=== PATIENT | female | born 1985 | race African-American/Black ===

== ENCOUNTER 2016-08-30 12:37 | Emergency (ER) | payer MEDICAID ==
--- NOTE | 2016-08-30 13:01 | ER Document Report ---
ED Medical Screen (RME) - General Stated Complaint: VAGINAL BLEEDING Notes: 30 yo female c/o heavy vaginal bleeding since Wednesday. + lower abdominal pain, stabbing. pt previous similar bleeding. + clots. TRAVEL OUTSIDE OF THE [place] IN LAST 30 DAYS: No - Related Data Allergies/Adverse Reactions: No Known Allergies Allergy (Verified 04/24/15 20:46) Past Medical History - Past Medical History Cardiac Medical History: Denies: Hx Coronary Artery Disease, Hx Heart Attack, Hx Hypertension Pulmonary Medical History: Denies: Hx Asthma, Hx Bronchitis, Hx COPD, Hx Pneumonia Neurological Medical History: Denies: Hx Cerebrovascular Accident, Hx Seizures Musculoskeltal Medical History: Denies Hx Arthritis Psychiatric Medical History: Reports: Hx Bipolar Disorder - Immunizations Immunizations up to date: Yes Hx Diphtheria, Pertussis, Tetanus Vaccination: Yes
[2016-08-30 14:02] LABS: ABSOLUTE EOSINOPHILS # (AUTO) 0.1 10^3/uL (0.0-0.6); ABSOLUTE LYMPHOCYTES (AUTO) 2.1 10^3/uL (0.5-4.7); ABSOLUTE MONOCYTES (AUTO) 0.3 10^3/uL (0.1-1.4); ABSOLUTE NEUT (AUTO) 1.3 10^3/uL (1.7-8.2); BASOPHILS % (AUTO) 1.1 % (0-2); EOSINOPHILS % (AUTO) 1.5 % (0-6); HEMOGLOBIN 11.4 g/dL (12.0-15.5); HGB HCT DIFFERENCE -0.8; LYMPHOCYTES % (AUTO) 54.6 % (13-45); MEAN CORPUSCULAR HEMOGLOBIN 25.1 pg (27.0-33.4); MEAN CORPUSCULAR HGB CONC 32.6 g/dL (32.0-36.0); MEAN CORPUSCULAR VOLUME 77 fl (80-97); MONOCYTES % (AUTO) 8.5 % (3-13); RED BLOOD COUNT 4.54 10^6/uL (3.72-5.28); RED CELL DISTRIBUTION WIDTH 16.7 % (11.5-14.0); SEGMENTED NEUTROPHILS % (AUTO) 34.3 % (42-78); WHITE BLOOD COUNT 3.9 10^3/uL (4.0-10.5)
--- NOTE | 2016-08-30 14:10 | ER Document Report ---
ED GI/ - General Chief Complaint: Vaginal Bleeding Stated Complaint: VAGINAL BLEEDING Time seen by provider: 14:06 Mode of Arrival: Ambulatory Information source: Patient Notes: 40-year-old female presents to ED for pelvic pain with heavy vaginal bleeding since Wednesday patient states last menstrual period was August 02. She states she has had 8 pregnancies and 6 live births 2 miscarriages. TRAVEL OUTSIDE OF THE [place] IN LAST 30 DAYS: No - HPI Patient complains to provider of: Abdominal pain, Pelvic pain, Vaginal bleeding - With clots Onset: Other Timing/Duration: Gradual - Wednesday, Better Quality of pain: Cramping, Sharp Pain Level: 5 Location: RLQ, Pelvis Vaginal bleeding (Compared to normal period): Heavier, Passing clots LMP: 08/02/16 Associated symptoms: Other - Vaginal bleeding right pelvic and lower quadrant pain Exacerbated by: Denies Relieved by: Denies Similar symptoms previously: Yes Recently seen / treated by doctor: No - Related Data Allergies/Adverse Reactions: No Known Allergies Allergy (Verified 08/30/16 13:01) Past Medical History - General Information source: Patient - Social History Smoking Status: Current Every Day Smoker Cigarette use (# per day): Yes - 1-2 cigarettes a day Chew tobacco use (# tins/day): No Smoking Education Provided: Yes - less than 1 minute Frequency of alcohol use: None Drug Abuse: None Occupation: patient states she is disabled Lives with: Alone - Along with children Family History: Arthritis, CAD, CVA, DM, Hyperlipidemia, Hypertension, Malignancy Patient has suicidal ideation: No Patient has homicidal ideation: No - Past Medical History Cardiac Medical History: Reports: None Pulmonary Medical History: Reports: None EENT Medical History: Reports: None Neurological Medical History: Reports: None Endocrine Medical History: Reports: None Renal/ Medical History: Reports: None Malignancy Medical History: Reports: None GI Medical History: Reports: None Musculoskeltal Medical History: Reports None Skin Medical History: Reports None Psychiatric Medical History: Reports: Hx Bipolar Disorder Traumatic Medical History: Reports: None Infectious Medical History: Reports: None Surgical Hx: Negative - Immunizations Immunizations up to date: Yes Hx Diphtheria, Pertussis, Tetanus Vaccination: Yes Hx Pneumococcal Vaccination: 08/23/00 Review of Systems - Review of Systems Constitutional: No symptoms reported EENT: No symptoms reported Cardiovascular: No symptoms reported Respiratory: No symptoms reported Gastrointestinal: Abdominal pain - Right lower quadrant just above the pelvic Genitourinary: No symptoms reported Female Genitourinary: Vaginal bleeding, Other Musculoskeletal: No symptoms reported Skin: No symptoms reported Hematologic/Lymphatic: No symptoms reported Neurological/Psychological: No symptoms reported Physical Exam - Vital signs Vitals: Temp Pulse Resp BP Pulse Ox 98.4 F 70 14 90/61 L 100 08/30/16 12:56 08/30/16 12:56 08/30/16 12:56 08/30/16 12:56 08/30/16 12:56 Interpretation: Normal - General General appearance: Appears well, Alert - HEENT Head: Normocephalic, Atraumatic Eyes: Normal Pupils: PERRL - Respiratory Respiratory status: No respiratory distress Chest status: Nontender Breath sounds: Normal Chest palpation: Normal - Cardiovascular Rhythm: Regular Heart sounds: Normal auscultation Murmur: No - Abdominal Inspection: Normal Distension: No distension Bowel sounds: Normal Tenderness: Tender - Right pelvic and just above the pelvic area Organomegaly: No organomegaly - Back Back: Normal, Nontender - Extremities General upper extremity: Normal inspection, Nontender, Normal color, Normal ROM , Normal temperature General lower extremity: Normal inspection, Nontender, Normal color, Normal ROM , Normal temperature, Normal weight bearing. No: Kelli's sign - Neurological Neuro grossly intact: Yes Cognition: Normal Orientation: AAOx4 [place] Coma Scale Eye Opening: Spontaneous [place] Coma Scale Verbal: Oriented [place] Coma Scale Motor: Obeys Commands Yvette Coma Scale Total: 15 Speech: Normal Motor strength normal: LUE, RUE, LLE, RLE Sensory: Normal - Psychological Associated symptoms: Normal affect, Normal mood - Skin Skin Temperature: Warm Skin Moisture: Dry Skin Color: Normal Course - Re-evaluation Re-evalutation: 08/30/16 17:12 Discussed labs and ultrasound with patient and written reports given to patient for follow-up with her primary doctor. Her ultrasound was negative and her labs were negative. - Vital Signs Vital signs: Temp Pulse Resp BP Pulse Ox 98.4 F 70 14 90/61 L 100 08/30/16 12:56 08/30/16 12:56 08/30/16 12:56 08/30/16 12:56 08/30/16 12:56 - Laboratory Result Diagrams: 08/30/16 13:24 01/08/17 13:24 Laboratory results interpreted by me: 08/30/16 08/30/16 13:24 13:24 WBC 3.9 L Hgb 11.4 L Hct 35.0 L MCV 77 L MCH 25.1 L RDW 16.7 H Plt Count 147 L Seg Neutrophils % 34.3 L Lymphocytes % 54.6 H Absolute Neutrophils 1.3 L Urine Protein 30 H Urine Blood LARGE H Urine Urobilinogen 4.0 H Ur Leukocyte Esterase TRACE H - Diagnostic Test Radiology reviewed: Image reviewed, Reports reviewed Discharge - Discharge Clinical Impression: Pelvic pain, Vaginal bleeding Condition: Stable Disposition: HOME, SELF-CARE Instructions: Family Physicians / Practices Additional Instructions: PELVIC PAIN: There are many causes of pain in the pelvic area. The cause could be the tubes, ovaries, uterus, intestines, appendix, pelvic muscles and connective tissue, or the urinary tract. The cause of your pelvic pain is not clear. However, it seems safe to treat you outside the hospital. If the pain sounds like a temporary problem, we sometimes wait to see if it goes away. Other patients may need additional tests, such as pelvic ultrasound or cultures. Conditions may change. Call us or come back for reexamination if any problems occur, such as: (1) Pain that becomes more severe, steady, or becomes concentrated in one specific area. Also, pain that is more severe with movement or coughing. (2) Vomiting that persists or becomes more frequent. (3) Blood in the vomitus, urine, or bowel movements. Blood in the stool may have a tarry or black appearance. (4) Shaking chills or fever greater than 100 degrees. (5) The abdomen becomes more distended or swollen. (6) Bowel movements cease. (7) Heavy vaginal bleeding. VAGINAL BLEEDING: You are having an episode of abnormal bleeding. Causes of abnormal vaginal bleeding can include miscarriage or tubal , tumors such as cancer or benign fibroids, medication effects, or hormone imbalance. Testing can eliminate unsuspected , tumors, or infection as a cause. "Dysfunctional uterine bleeding" is due to hormone imbalance, and is especially common at times when the normal cycle is disturbed -- whether by recent , use of control pills or hormones, or impending menopause. If the bleeding is innocent, most commonly a short course of hormones is given to restore the uterus to normal. Sometimes, the normal menstrual cycle corrects itself naturally. Sometimes , brief hormone therapy, or even a D&C is required. Your physician will advise you. Treatment for anemia may be required if bleeding is severe. You should rest and avoid intercourse until the bleeding is controlled. Call the doctor or return for re-examination if you feel faint, have increasing pain, or have a major increase in the amount of bleeding. FIBROIDS: Fibroids are benign growths or tumors in the uterus. They can cause enlargement of the uterus, irregular bleeding, severe bleeding with periods, and abdominal pain. Anemia may result if periods are heavy. Fibroids tend to grow until menopause, then slowly shrink. If fibroids cause severe symptoms, they can be treated surgically. Call or return if vaginal bleeding or pain becomes severe. NORMAL EXAM AND WORKUP: At this time, except for vaginal bleeding, your examination and workup show no significant abnormality. No significant abnormal physical findings were noted. All laboratory, EKG, and imaging (x-ray, CT scans, ultrasound) studies that were ordered show no significant abnormality. Although your examination and all studies that were ordered showed no significant abnormal finding, there are no examinations and no studies that are 100% accurate. There is always the possibility that some abnormality could exist and not be detected with physical examination or within the limits and capabilities of laboratory and other studies. You should return or follow up as you were instructed on your visit today for further evaluation if your symptoms do not resolve. FOLLOW-UP CARE: If you have been referred to a physician for follow-up care, call the physician s office for an appointment as you were instructed or within the next two days. If you experience worsening or a significant change in your symptoms (very heavy bleeding with large clots of blood, passage of tissue, more severe abdominal / pelvic pain or cramping, feeling faint or severe weakness, fever, etc.), notify the physician immediately or return to the Emergency Department at any time for re-evaluation. [facility] ([facility] [place]: [facility] [address] [place] [address] [phone] Forms: Smoking Cessation Education
[2016-08-30 14:13] LABS: APPEARANCE,URINE SLIGHTLY-CLOUDY; BILIRUBIN,URINE NEGATIVE (NEGATIVE); GLUCOSE, URINE NEGATIVE (NEGATIVE); KETONES,URINE NEGATIVE (NEGATIVE); LEUKOCYTE ESTERASE,URINE TRACE (NEGATIVE); NITRITE,URINE NEGATIVE (NEGATIVE); PROTEIN,URINE 30 mg/dL (NEGATIVE); URINE SPECIFIC GRAVITY 1.029
[2016-08-30 14:20] LABS: ALANINE AMINOTRANSFERASE 44 U/L (9-52); ALBUMIN 4.3 g/dL (3.5-5.0); ALKALINE PHOSPHATASE 61 U/L (38-126); ANION GAP 10 (5-19); ASPARTATE AMINO TRANSFERASE 26 U/L (14-36); BILIRUBIN,TOTAL 0.6 mg/dL (0.2-1.3); BLOOD UREA NITROGEN 11 mg/dL (7-20); CALCIUM 10.1 mg/dL (8.4-10.2); CARBON DIOXIDE 30 mmol/L (22-30); CHLORIDE 105 mmol/L (98-107); CREATININE RESULT 1.03 mg/dL (0.52-1.25); GLUCOSE 85 mg/dL (75-110); POTASSIUM 4.1 mmol/L (3.6-5.0); SODIUM 144.6 mmol/L (137-145); TOTAL PROTEIN 7.4 g/dL (6.3-8.2)
[2016-08-30 17:16] VITALS: BP 118/82
== END 2016-08-30 17:26 | disposition home or self-care (01) ==
LOC: ER 12:37
DX: N93.9 Abnormal uterine and vaginal bleeding, unspecified (principal); R10.2 Pelvic and perineal pain; R10.31 Right lower quadrant pain; Z87.59 Personal history of other complications of pregnancy, childbirth and the puerperium; F17.210 Nicotine dependence, cigarettes, uncomplicated; Z71.6 Tobacco abuse counseling
CPT/HCPCS: 36415; 76830; 80053; 81001; 84702; 84703; 85025; 99284

== ENCOUNTER 2016-11-20 22:17 | Emergency (ER) | payer MEDICAID ==
[2016-11-20 22:25] VITALS: BP 105/66
[2016-11-21 00:14] LABS: APPEARANCE,URINE SLIGHTLY-CLOUDY; BILIRUBIN,URINE NEGATIVE (NEGATIVE); GLUCOSE, URINE NEGATIVE (NEGATIVE); KETONES,URINE NEGATIVE (NEGATIVE); LEUKOCYTE ESTERASE,URINE TRACE (NEGATIVE); NITRITE,URINE NEGATIVE (NEGATIVE); PROTEIN,URINE NEGATIVE (NEGATIVE)
--- NOTE | 2016-11-21 02:53 | ER Document Report ---
ED GI/ - General Chief Complaint: Vaginal Bleeding Stated Complaint: VAGINAL BLEEDING,SHARP PAIN,HARD TO WALK Mode of Arrival: Ambulatory Information source: Patient Notes: 30-year-old female presents to the emergency department complaining of vaginal bleeding and pelvic pain. Pt reports began having vaginal bleeding this afternoon similar to light menstrual period and has noted associated cramping type pain to mid and right lower pelvis. Reports LMP was 10/24/16. Reports urinary urgency but denies dysuria. Denies fever or vaginal discharge. TRAVEL OUTSIDE OF THE [place] IN LAST 30 DAYS: No - HPI Patient complains to provider of: Pelvic pain, Vaginal bleeding Onset: This afternoon Timing/Duration: Gradual Quality of pain: Achy, Cramping Severity at maximum: Moderate Severity in ED: Mild Pain Level: 2 Vaginal bleeding (Compared to normal period): Similar Similar symptoms previously: No Recently seen / treated by doctor: No - Related Data Allergies/Adverse Reactions: No Known Allergies Allergy (Verified 11/20/16 22:59) Past Medical History - General Information source: Patient - Social History Smoking Status: Current Every Day Smoker Chew tobacco use (# tins/day): No Frequency of alcohol use: None Drug Abuse: None Family History: Arthritis, CAD, CVA, DM, Hyperlipidemia, Hypertension, Malignancy - Past Medical History Cardiac Medical History: Denies: Hx Coronary Artery Disease, Hx Heart Attack, Hx Hypertension Pulmonary Medical History: Denies: Hx Asthma, Hx Bronchitis, Hx COPD, Hx Pneumonia Neurological Medical History: Denies: Hx Cerebrovascular Accident, Hx Seizures Renal/ Medical History: Denies: Hx Peritoneal Dialysis Musculoskeltal Medical History: Denies Hx Arthritis Psychiatric Medical History: Reports: Hx Bipolar Disorder Surgical Hx: Negative - Immunizations Immunizations up to date: Yes Hx Diphtheria, Pertussis, Tetanus Vaccination: Yes Hx Pneumococcal Vaccination: 08/23/00 Review of Systems - Review of Systems Constitutional: No symptoms reported EENT: No symptoms reported Cardiovascular: No symptoms reported Respiratory: No symptoms reported Gastrointestinal: No symptoms reported Genitourinary: No symptoms reported Female Genitourinary: See HPI Musculoskeletal: No symptoms reported Skin: No symptoms reported Hematologic/Lymphatic: No symptoms reported Neurological/Psychological: No symptoms reported -: Yes All other systems reviewed and negative Physical Exam - Vital signs Vitals: Temp Pulse Resp BP Pulse Ox 98.6 F 59 L 16 105/66 100 11/20/16 22:24 11/20/16 22:24 11/20/16 22:24 11/20/16 22:24 11/20/16 22:24 Interpretation: Normal - General General appearance: Appears well, Alert In distress: None - HEENT Head: Normocephalic, Atraumatic Eyes: Normal Pupils: PERRL - Respiratory Respiratory status: No respiratory distress Chest status: Nontender Breath sounds: Normal Chest palpation: Normal - Cardiovascular Rhythm: Regular Heart sounds: Normal auscultation Murmur: No Pulses: Normal: Radial Normal capillary refill: Yes - Abdominal Inspection: Normal Distension: No distension Bowel sounds: Normal Tenderness: Tender - mild tenderness with palpation to mid lower abd/pelvic area. No: Nontender, McBurney's point, Conn's sign, Guarding, Rebound, Other Organomegaly: No organomegaly - Genitourinary Notes: Patient declined pelvic exam - Back Back: Normal, Nontender - Extremities General upper extremity: Normal inspection, Nontender, Normal color, Normal ROM , Normal temperature General lower extremity: Normal inspection, Nontender, Normal color, Normal ROM , Normal temperature, Normal weight bearing - Neurological Neuro grossly intact: Yes Cognition: Normal Orientation: AAOx4 Yvette Coma Scale Eye Opening: Spontaneous [place]ner Coma Scale Verbal: Oriented [place] Coma Scale Motor: Obeys Commands Yvette Coma Scale Total: 15 Speech: Normal Motor strength normal: LUE, RUE, LLE, RLE Sensory: Normal - Psychological Associated symptoms: Normal affect, Normal mood - Skin Skin Temperature: Warm Skin Moisture: Dry Skin Color: Normal Course - Re-evaluation Re-evalutation: 11/21/16 02:45 Patient hemodynamically stable, in no distress, afebrile, and appears well- hydrated. Physical exam unremarkable with no suggestion of emergent etiology at this time. UA shows negative hCG, trace leukocyte Estrace and wbc's. Urine culture obtained. Patient initially reported she had not had similar symptoms for however reviewing previous ED visit records appears has had several similar episodes. Patient appears stable for discharge and agrees with home care, follow-up with [facility], and ED return precautions. - Vital Signs Vital signs: Temp Pulse Resp BP Pulse Ox 98.6 F 59 L 16 105/66 100 11/20/16 22:24 11/20/16 22:24 11/20/16 22:24 11/20/16 22:24 11/20/16 22:24 - Laboratory Laboratory results interpreted by me: 11/21/16 00:00 Urine Blood LARGE H Urine Urobilinogen 2.0 H Ur Leukocyte Esterase TRACE H Discharge - Discharge Clinical Impression: Vaginal bleeding UTI (urinary tract infection) Qualifiers: Urinary tract infection type: site unspecified Hematuria presence: with hematuria Qualified Code(s): N39.0 - Urinary tract infection, site not specified Condition: Stable Disposition: HOME, SELF-CARE Additional Instructions: VAGINAL BLEEDING: You are having an episode of abnormal bleeding. Causes of abnormal vaginal bleeding can include miscarriage or tubal , tumors such as cancer or benign fibroids, medication effects, or hormone imbalance. Testing can eliminate unsuspected , tumors, or infection as a cause. "Dysfunctional uterine bleeding" is due to hormone imbalance, and is especially common at times when the normal cycle is disturbed -- whether by recent , use of control pills or hormones, or impending menopause. If the bleeding is innocent, most commonly a short course of hormones is given to restore the uterus to normal. Sometimes, the normal menstrual cycle corrects itself naturally. Sometimes , brief hormone therapy, or even a D&C is required. Your physician will advise you. Treatment for anemia may be required if bleeding is severe. You should rest and avoid intercourse until the bleeding is controlled. Call the doctor or return for re-examination if you feel faint, have increasing pain, or have a major increase in the amount of bleeding. Pelvic Pain There are many causes of pain in the pelvic area. The cause could be the tubes, ovaries, uterus, intestines, appendix, pelvic muscles and connective tissue, or the urinary tract. The cause of your pelvic pain is not clear. However, it seems safe to treat you outside the hospital. If the pain sounds like a temporary problem, we sometimes wait to see if it goes away. Other patients may need additional tests, such as pelvic ultrasound or cultures. Conditions may change. Call us or come back for reexamination if any problems occur, such as: (1) Pain that becomes more severe, steady, or becomes concentrated in one specific area. Also, pain that is more severe with movement or coughing. (2) Vomiting that persists or becomes more frequent. (3) Blood in the vomitus, urine, or bowel movements. Blood in the stool may have a tarry or black appearance. (4) Shaking chills or fever greater than 100 degrees. (5) The abdomen becomes more distended or swollen. (6) Bowel movements cease. (7) Heavy vaginal bleeding. Anti-Inflammatory Medication You have received a prescription for an antiinflammatory agent. This is an excellent, safe drug for pain control. In addition, it has potent antiinflammatory effects which are beneficial, especially in the treatment of injuries, arthritis, or tendonitis. It's best to take this medicine with food. Persons with ulcer disease or allergy to aspirin should notify their physician of this before taking this drug. Take the medication exactly as prescribed. Don't take additional doses unless instructed to do so by your doctor. If you develop wheezing, shortness of breath, hives, faintness, stomach pain, vomiting, or dark black stools, return for re-evaluation at once. URINARY TRACT INFECTION: Your evaluation indicates that you have a urinary tract infection. This is due to germs growing in the bladder. This is a common problem. This infection usually responds quickly to antibiotics. Your antibiotic should be taken exactly as prescribed. Drink plenty of fluids -- three to four quarts a day. Occasionally, a bladder anesthetic will be prescribed to help stop the feeling of urgency until the antibiotic has a chance to clear the infection. This may cause your urine to be dark orange. Certain urine infections require a culture. If the doctor obtained a culture, the results will be back in two days. You should call to see if a change in treatment is needed. A repeat urinalysis after you finish treatment is often recommended. The physician will let you know if further testing is required. Call the doctor if you develop fever, chills, flank pain, inability to urinate, or blood in the urine. NITROFURANTOIN (MACRODANTIN, MACROBID): You have received a prescription for nitrofurantoin (Macrodantin). This antibiotic is used for urinary tract infections. Women who are or nursing should notify the physician before taking this medicine. If you have ever had a problem caused by this medication in the past, be sure the physician is aware of it. Common side effects of this medicine include nausea, vomiting, or decreased appetite. Notify your physician if these side effects become severe. Immediately stop this medicine and call the physician if you develop cough , shortness of breath, chest pain, weakness, jaundice (yellow color of the skin and whites of the eyes), or a skin rash. FOLLOW-UP CARE: Drink plenty of fluids. Follow-up with [facility] on Wednesday. If you experience worsening or a significant change in your symptoms (very heavy bleeding with large clots of blood, passage of tissue, more severe abdominal / pelvic pain or cramping, feeling faint or severe weakness, fever, etc.), notify the physician immediately or return to the Emergency Department at any time for re-evaluation. Prescriptions: Naproxen [Naprosyn 375 Mg Tablet] 375 mg PO BIDP PRN #10 tablet PRN Reason: Nitrofurantoin/Nitrofuran Mac [Macrobid 100 mg Capsule] 1 tab PO BID #14 capsule Referrals: [facility] [Provider Group] - Follow up as needed
== END 2016-11-21 03:03 | disposition home or self-care (01) ==
LOC: ER 22:17
DX: N93.9 Abnormal uterine and vaginal bleeding, unspecified (principal); N39.0 Urinary tract infection, site not specified; R31.9 Hematuria, unspecified; R10.2 Pelvic and perineal pain; R39.14 Feeling of incomplete bladder emptying; F17.200 Nicotine dependence, unspecified, uncomplicated
CPT/HCPCS: 76830; 81001; 81025; 87086; 87088; 87186; 93976; 99284

== ENCOUNTER 2016-12-22 05:38 | Emergency (ER) | payer MEDICAID ==
[2016-12-22 06:23] LABS: APPEARANCE,URINE CLEAR; BILIRUBIN,URINE NEGATIVE (NEGATIVE); GLUCOSE, URINE NEGATIVE (NEGATIVE); KETONES,URINE NEGATIVE (NEGATIVE); LEUKOCYTE ESTERASE,URINE NEGATIVE (NEGATIVE); NITRITE,URINE POSITIVE (NEGATIVE); PROTEIN,URINE NEGATIVE (NEGATIVE); URINE SPECIFIC GRAVITY 1.024; UROBILINOGEN,URINE NEGATIVE mg/dL (<2.0)
--- NOTE | 2016-12-22 07:18 | ER Document Report ---
ED GI/ - General Chief Complaint: Abdominal Pain Stated Complaint: ABDOMINAL PAIN Time seen by provider: 07:12 Mode of Arrival: Ambulatory Information source: Patient Notes: 31-year-old female presents to ED for abdominal pain and denies nausea vomiting diarrhea or fever. She's had cramping for the last 3 or 4 days. She states she had spotting for a couple days but did not have her period this month. Her hCG is positive Will run Quant to find out how far. TRAVEL OUTSIDE OF THE [place] IN LAST 30 DAYS: No - HPI Patient complains to provider of: Abdominal pain. No: Diarrhea, Vomiting Onset: Other - 3 or 4 days Timing/Duration: Gradual Quality of pain: Cramping, Other - Bloated Severity at maximum: Severe Severity in ED: Moderate Pain Level: 2 Location: Epigastric, LUQ, LLQ, RUQ, RLQ Vaginal bleeding (Compared to normal period): None LMP: beginning of November Associated symptoms: None Exacerbated by: Denies Relieved by: Denies Similar symptoms previously: Yes Recently seen / treated by doctor: No - Related Data Allergies/Adverse Reactions: No Known Allergies Allergy (Verified 11/20/16 22:59) Past Medical History - General Information source: Patient - Social History Smoking Status: Current Every Day Smoker Cigarette use (# per day): Yes - pack per day Chew tobacco use (# tins/day): No Smoking Education Provided: Yes - less than 2 minutes Frequency of alcohol use: None Drug Abuse: None Occupation: none Lives with: Spouse/Significant other Family History: Arthritis, CAD, CVA, DM, Hyperlipidemia, Hypertension, Malignancy Patient has suicidal ideation: No Patient has homicidal ideation: No - Past Medical History Cardiac Medical History: Reports: None Pulmonary Medical History: Reports: None EENT Medical History: Reports: None Neurological Medical History: Reports: None Endocrine Medical History: Reports: None Renal/ Medical History: Reports: None Malignancy Medical History: Reports: None GI Medical History: Reports: None Musculoskeltal Medical History: Reports None Skin Medical History: Reports None Psychiatric Medical History: Reports: Hx Bipolar Disorder Traumatic Medical History: Reports: None Infectious Medical History: Reports: None - Immunizations Immunizations up to date: Yes Hx Diphtheria, Pertussis, Tetanus Vaccination: Yes Hx Pneumococcal Vaccination: 08/23/00 Review of Systems - Review of Systems Constitutional: No symptoms reported EENT: No symptoms reported Cardiovascular: No symptoms reported Respiratory: No symptoms reported Gastrointestinal: Abdominal pain. denies: Diarrhea, Nausea, Vomiting Genitourinary: No symptoms reported Female Genitourinary: No symptoms reported, Other - Thinks she's Musculoskeletal: No symptoms reported Skin: No symptoms reported Hematologic/Lymphatic: No symptoms reported Neurological/Psychological: No symptoms reported Physical Exam - Vital signs Vitals: Temp Pulse Resp BP Pulse Ox 98.4 F 73 18 112/60 100 12/22/16 05:42 12/22/16 05:42 12/22/16 05:42 12/22/16 05:42 12/22/16 05:42 Interpretation: Normal - General General appearance: Appears well, Alert - HEENT Head: Normocephalic, Atraumatic Eyes: Normal Pupils: PERRL - Respiratory Respiratory status: No respiratory distress Chest status: Nontender Breath sounds: Normal Chest palpation: Normal - Cardiovascular Rhythm: Regular Heart sounds: Normal auscultation Murmur: No - Abdominal Inspection: Normal Distension: No distension Bowel sounds: Normal Tenderness: Nontender. No: Tender Organomegaly: No organomegaly - Back Back: Normal, Nontender - Extremities General upper extremity: Normal inspection, Nontender, Normal color, Normal ROM , Normal temperature General lower extremity: Normal inspection, Nontender, Normal color, Normal ROM , Normal temperature, Normal weight bearing. No: Kelli's sign - Neurological Neuro grossly intact: Yes Cognition: Normal Orientation: AAOx4 Richardson Coma Scale Eye Opening: Spontaneous Richardson Coma Scale Verbal: Oriented Yvette Coma Scale Motor: Obeys Commands Yvette Coma Scale Total: 15 Speech: Normal Motor strength normal: LUE, RUE, LLE, RLE Sensory: Normal - Psychological Associated symptoms: Normal affect, Normal mood - Skin Skin Temperature: Warm Skin Moisture: Dry Skin Color: Normal Course - Re-evaluation Re-evalutation: 12/22/16 10:43 Discussed results of lab work with patient patient to follow-up with [facility] for her positive test. Patient started on Macrobid for her UTI. - Vital Signs Vital signs: Temp Pulse Resp BP Pulse Ox 98.0 F 70 16 110/55 L 100 12/22/16 09:04 12/22/16 09:04 12/22/16 09:04 12/22/16 09:04 12/22/16 09:04 - Laboratory Result Diagrams: 12/22/16 07:34 12/22/16 07:34 Laboratory results interpreted by me: 12/22/16 12/22/16 12/22/16 05:50 07:34 07:34 Hgb 11.3 L Hct 34.9 L MCV 76 L MCH 24.5 L RDW 18.7 H Plt Count 147 L Serum HCG, Qual POSITIVE H Beta HCG, Quant Urine Nitrite POSITIVE H Urine HCG, Qual POSITIVE H 12/22/16 07:34 Hgb Hct MCV MCH RDW Plt Count Serum HCG, Qual Beta HCG, Quant 1509.30 H Urine Nitrite Urine HCG, Qual Discharge - Discharge Clinical Impression: Urinary tract infection affecting care of mother in first trimester, antepartum Condition: Stable Disposition: HOME, SELF-CARE Additional Instructions: URINARY TRACT INFECTION: Your evaluation indicates that you have a urinary tract infection. This is due to germs growing in the bladder. This is a common problem. This infection usually responds quickly to antibiotics. Your antibiotic should be taken exactly as prescribed. Drink plenty of fluids -- three to four quarts a day. Occasionally, a bladder anesthetic will be prescribed to help stop the feeling of urgency until the antibiotic has a chance to clear the infection. This may cause your urine to be dark orange. Certain urine infections require a culture. If the doctor obtained a culture, the results will be back in two days. You should call to see if a change in treatment is needed. A repeat urinalysis after you finish treatment is often recommended. The physician will let you know if further testing is required. Call the doctor if you develop fever, chills, flank pain, inability to urinate, or blood in the urine. You are . care is best started as early in as possible. If you're unsure about continuing this , you should discuss this with your physician or with claims vice president at [facility]. You should take only medications approved by your physician. Acetaminophen can safely be taken for minor pains. As a rule, medication for chronic conditions such as asthma or seizures can safely be continued. You should discuss with the physician every medicine you take. Any regular exercise program can be continued. Talk to your physician, however, before engaging in competitive or demanding sports. Alcohol, smoking, and "street drugs" are dangerous to your baby. Cocaine is especially dangerous. Don't use any illicit drugs! NITROFURANTOIN (MACRODANTIN, MACROBID): You have received a prescription for nitrofurantoin (Macrodantin). This antibiotic is used for urinary tract infections. Women who are or nursing should notify the physician before taking this medicine. If you have ever had a problem caused by this medication in the past, be sure the physician is aware of it. Common side effects of this medicine include nausea, vomiting, or decreased appetite. Notify your physician if these side effects become severe. Immediately stop this medicine and call the physician if you develop cough , shortness of breath, chest pain, weakness, jaundice (yellow color of the skin and whites of the eyes), or a skin rash. FOLLOW-UP CARE: If you have been referred to a physician for follow-up care, call the physician s office for an appointment as you were instructed or within the next two days. If you experience worsening or a significant change in your symptoms, notify the physician immediately or return to the Emergency Department at any time for re-evaluation. Prescriptions: Nitrofurantoin/Nitrofuran Mac [Macrobid 100 mg Capsule] 1 tab PO BID #20 capsule Forms: Smoking Cessation Education, Return to Work Referrals: [facility] [Provider Group] - Follow up as needed
[2016-12-22 07:39] LABS: ABSOLUTE BASOPHILS # (AUTO) 0.1 10^3/uL (0.0-0.2); ABSOLUTE EOSINOPHILS # (AUTO) 0.1 10^3/uL (0.0-0.6); ABSOLUTE LYMPHOCYTES (AUTO) 1.9 10^3/uL (0.5-4.7); ABSOLUTE MONOCYTES (AUTO) 0.5 10^3/uL (0.1-1.4); ABSOLUTE NEUT (AUTO) 2.7 10^3/uL (1.7-8.2); BASOPHILS % (AUTO) 1.3 % (0-2); HEMATOCRIT 34.9 % (36.0-47.0); HEMOGLOBIN 11.3 g/dL (12.0-15.5); LYMPHOCYTES % (AUTO) 36.6 % (13-45); MEAN CORPUSCULAR HEMOGLOBIN 24.5 pg (27.0-33.4); MEAN CORPUSCULAR HGB CONC 32.3 g/dL (32.0-36.0); MEAN CORPUSCULAR VOLUME 76 fl (80-97); MONOCYTES % (AUTO) 9.3 % (3-13); RED BLOOD COUNT 4.61 10^6/uL (3.72-5.28); RED CELL DISTRIBUTION WIDTH 18.7 % (11.5-14.0); SEGMENTED NEUTROPHILS % (AUTO) 51.8 % (42-78); WHITE BLOOD COUNT 5.3 10^3/uL (4.0-10.5)
[2016-12-22 07:56] LABS: ALANINE AMINOTRANSFERASE 47 U/L (9-52); ALBUMIN 3.8 g/dL (3.5-5.0); ALKALINE PHOSPHATASE 61 U/L (38-126); ANION GAP 8 (5-19); ASPARTATE AMINO TRANSFERASE 31 U/L (14-36); BILIRUBIN,DIRECT 0.1 mg/dL (0.0-0.4); BILIRUBIN,TOTAL 0.3 mg/dL (0.2-1.3); BLOOD UREA NITROGEN 10 mg/dL (7-20); CALCIUM 9.1 mg/dL (8.4-10.2); CARBON DIOXIDE 27 mmol/L (22-30); CHLORIDE 107 mmol/L (98-107); GLUCOSE 78 mg/dL (75-110); SODIUM 142.3 mmol/L (137-145); TOTAL PROTEIN 6.9 g/dL (6.3-8.2)
[2016-12-22] MEDS ORDERED: NITROFURANTOIN MONOHYD/M-CRYST 100 MG CAPSULE PO ONE (08:52)
[2016-12-22 09:07] VITALS: BP 110/55
== END 2016-12-22 09:08 | disposition home or self-care (01) ==
LOC: ER 05:38
DX: O23.41 Unspecified infection of urinary tract in pregnancy, first trimester (principal); O26.851 Spotting complicating pregnancy, first trimester; O26.891 Other specified pregnancy related conditions, first trimester; R10.84 Generalized abdominal pain; O99.331 Smoking (tobacco) complicating pregnancy, first trimester; F17.210 Nicotine dependence, cigarettes, uncomplicated; Z3A.00 Weeks of gestation of pregnancy not specified
CPT/HCPCS: 99284; 36415; 84702; 84703; 85025; 81025; 80053; 81001; J3490; J8499

== ENCOUNTER 2017-01-12 14:15 | Emergency (ER) | payer MEDICAID ==
[2017-01-12 14:48] VITALS: BP 97/54
[2017-01-12] MEDS ORDERED: ONDANSETRON 4 MG TAB.RAPDIS PO ONE (15:15)
--- NOTE | 2017-01-12 15:17 | ER Document Report ---
ED Medical Screen (RME) - General TRAVEL OUTSIDE OF THE [place] IN LAST 30 DAYS: No <NEGRITA BAHENA - Last Filed: 01/12/17 15:55> <LUCI LOPEZ - Last Filed: 01/12/17 18:13> - General Chief Complaint: Pelvic Pain Stated Complaint: ABDOMINAL/VAGINAL PAIN Time Seen by Provider: 01/12/17 15:09 Notes: 31-year-old female presenting to the emergency department for lower abdominal pain, vaginal pain, vomiting and dizziness. Patient states she is 8 weeks but has not had an ultrasound to confirm. Patient states she saw the health department they told her she was 6 weeks. Patient states she also thinks she had a miscarriage last month. Patient states her last menstrual period was at the end of November. Patient describes her abdominal pain is sharp. Patient states she does have some vaginal odor but denies any vaginal bleeding. Patient has had miscarriages and abortions in the past. (NEGRITA BAHENA) - Related Data Allergies/Adverse Reactions: No Known Allergies Allergy (Verified 01/12/17 15:12) Past Medical History - General Last Menstrual Period: 12/19/16 - Past Medical History Cardiac Medical History: Denies: Hx Coronary Artery Disease, Hx Heart Attack, Hx Hypertension Pulmonary Medical History: Denies: Hx Asthma, Hx Bronchitis, Hx COPD, Hx Pneumonia Neurological Medical History: Denies: Hx Cerebrovascular Accident, Hx Seizures Renal/ Medical History: Denies: Hx Peritoneal Dialysis Musculoskeltal Medical History: Denies Hx Arthritis Psychiatric Medical History: Reports: Hx Bipolar Disorder - Immunizations Immunizations up to date: Yes Hx Diphtheria, Pertussis, Tetanus Vaccination: Yes <NEGRITA BAHENA - Last Filed: 01/12/17 15:55> Physical Exam <NEGRITA BAHENA - Last Filed: 01/12/17 15:55> <LUCI LOPEZ - Last Filed: 01/12/17 18:13> - Vital signs Vitals: Temp Pulse Resp BP Pulse Ox 97.5 F 73 18 97/54 L 100 01/12/17 14:43 01/12/17 14:43 01/12/17 14:43 01/12/17 14:43 01/12/17 14:43 - Notes Notes: GENERAL: Alert, interacts well. No acute distress. LUNGS: No respiratory distress. HEART: Regular rate. ABDOMEN: Tenderness to palpation over the lower abdomen. Non-distended. NEUROLOGICAL: Alert and oriented x3. Normal speech. (NEGRITA BAHENA) Course - Laboratory Result Diagrams: 01/12/17 16:00 01/12/17 16:00 <LUCI LOPEZ - Last Filed: 01/12/17 18:13> - Vital Signs Vital signs: Temp Pulse Resp BP Pulse Ox 97.5 F 73 18 97/54 L 100 01/12/17 14:43 01/12/17 14:43 01/12/17 14:43 01/12/17 14:43 01/12/17 14:43 - Laboratory Laboratory results interpreted by me: 01/12/17 01/12/17 01/12/17 16:00 16:00 16:09 Hgb 10.7 L Hct 33.7 L MCV 77 L MCH 24.4 L MCHC 31.9 L RDW 19.2 H Sodium 134.2 L Beta HCG, Quant 086576.00 H Urine Ketones TRACE H Urine Nitrite POSITIVE H Scribe Documentation - Scribe Written by Scribe:: April Garces, 01/12/17 16:00 acting as scribe for :: Mray <NEGRITA BAHENA - Last Filed: 01/12/17 15:55>
[2017-01-12 16:21] LABS: ABSOLUTE LYMPHOCYTES (AUTO) 2.6 10^3/uL (0.5-4.7); ABSOLUTE MONOCYTES (AUTO) 0.5 10^3/uL (0.1-1.4); ABSOLUTE NEUT (AUTO) 3.4 10^3/uL (1.7-8.2); BASOPHILS % (AUTO) 0.6 % (0-2); EOSINOPHILS % (AUTO) 0.5 % (0-6); HEMATOCRIT 33.7 % (36.0-47.0); HEMOGLOBIN 10.7 g/dL (12.0-15.5); HGB HCT DIFFERENCE -1.6; LYMPHOCYTES % (AUTO) 39.5 % (13-45); MEAN CORPUSCULAR HEMOGLOBIN 24.4 pg (27.0-33.4); MEAN CORPUSCULAR HGB CONC 31.9 g/dL (32.0-36.0); MEAN CORPUSCULAR VOLUME 77 fl (80-97); MONOCYTES % (AUTO) 7.8 % (3-13); RED BLOOD COUNT 4.41 10^6/uL (3.72-5.28); RED CELL DISTRIBUTION WIDTH 19.2 % (11.5-14.0); SEGMENTED NEUTROPHILS % (AUTO) 51.6 % (42-78); WHITE BLOOD COUNT 6.5 10^3/uL (4.0-10.5)
[2017-01-12 16:25] LABS: APPEARANCE,URINE SLIGHTLY-CLOUDY; BILIRUBIN,URINE NEGATIVE (NEGATIVE); GLUCOSE, URINE NEGATIVE (NEGATIVE); KETONES,URINE TRACE mg/dL (NEGATIVE); LEUKOCYTE ESTERASE,URINE NEGATIVE (NEGATIVE); NITRITE,URINE POSITIVE (NEGATIVE); PROTEIN,URINE NEGATIVE (NEGATIVE); URINE SPECIFIC GRAVITY 1.017; UROBILINOGEN,URINE NEGATIVE mg/dL (<2.0)
--- NOTE | 2017-01-12 16:29 | ER Document Report ---
ED General - General Chief Complaint: Pelvic Pain Stated Complaint: ABDOMINAL/VAGINAL PAIN Time Seen by Provider: 01/12/17 15:09 Mode of Arrival: Ambulatory Information source: Patient Notes: Patient presents to the emergency department with complaints of vaginal pain vomiting dizziness. Denies abdominal pain. Patient reports she is approximately 8 weeks but has not had an ultrasound to confirm this. She reports she was evaluated at the health department and they told her she was approximately 6 weeks. Patient also reports she thinks she may have had a miscarriage last month. She reports last menstrual period at the beginning of November. Patient denies pain with void but reports vaginal odor and discharge denies vaginal bleeding. Pt is . TRAVEL OUTSIDE OF THE [place] IN LAST 30 DAYS: No - HPI Onset: Other - 3 days Quality of pain: Cramping Pain Level: 5 - offered tylenol, declined Associated symptoms: Vomiting Exacerbated by: Denies Relieved by: Denies Similar symptoms previously: Yes Recently seen / treated by doctor: Yes - Related Data Allergies/Adverse Reactions: No Known Allergies Allergy (Verified 01/12/17 15:12) Past Medical History - General Information source: Patient Last Menstrual Period: 12/19/16 - Social History Smoking Status: Current Every Day Smoker Cigarette use (# per day): Yes Frequency of alcohol use: None Drug Abuse: None Family History: Arthritis, CAD, CVA, DM, Hyperlipidemia, Hypertension, Malignancy Patient has suicidal ideation: No Patient has homicidal ideation: No - Past Medical History Cardiac Medical History: Denies: Hx Coronary Artery Disease, Hx Heart Attack, Hx Hypertension Pulmonary Medical History: Denies: Hx Asthma, Hx Bronchitis, Hx COPD, Hx Pneumonia Neurological Medical History: Denies: Hx Cerebrovascular Accident, Hx Seizures Renal/ Medical History: Denies: Hx Peritoneal Dialysis Musculoskeltal Medical History: Denies Hx Arthritis Psychiatric Medical History: Reports: Hx Bipolar Disorder Surgical Hx: Negative - Immunizations Immunizations up to date: Yes Hx Diphtheria, Pertussis, Tetanus Vaccination: Yes Hx Pneumococcal Vaccination: 08/23/00 Review of Systems - Review of Systems Notes: Review HPI for review of systems., All other systems negative Physical Exam - Vital signs Vitals: Temp Pulse Resp BP Pulse Ox 97.5 F 73 18 97/54 L 100 01/12/17 14:43 01/12/17 14:43 01/12/17 14:43 01/12/17 14:43 01/12/17 14:43 - Notes Notes: PHYSICAL EXAMINATION: GENERAL: Well-appearing and in no acute distress HEAD: Atraumatic, normocephalic. EYES: Pupils equal round extraocular movements intact, sclera anicteric, conjunctiva are normal. ENT: nares patent, Moist mucous membranes. NECK: Normal range of motion, supple without lymphadenopathy LUNGS: RR even/unlabored, no SOB HEART: Regular rate ABDOMEN: Soft, no tenderness. No guarding, no rebound EXTREMITIES: Normal range of motion, no pitting edema. No cyanosis. NEUROLOGICAL: Cranial nerves grossly intact. Normal sensory/motor exams. PSYCH: Normal mood, normal affect. SKIN: Warm, Dry, normal turgor, no rashes or lesions noted Course - Re-evaluation Re-evalutation: 01/12/17 18:34 Patient is very irritated very difficult to obtain history from her. She reports she just wants to eat. Discussed vaginal discharge need for pelvic. Patient agreed pelvic if she could have something to eat afterwards. Patient reports she did not want to wait for the results of STD. She will be called if anything is positive. 01/12/17 20:22 No gonorrhea or chlamydia noted patient not called. - Vital Signs Vital signs: Temp Pulse Resp BP Pulse Ox 97.5 F 73 18 97/54 L 100 01/12/17 14:43 01/12/17 14:43 01/12/17 14:43 01/12/17 14:43 01/12/17 14:43 - Laboratory Result Diagrams: 01/12/17 16:00 01/12/17 16:00 Laboratory results interpreted by me: 01/12/17 01/12/17 01/12/17 16:00 16:00 16:09 Hgb 10.7 L Hct 33.7 L MCV 77 L MCH 24.4 L MCHC 31.9 L RDW 19.2 H Sodium 134.2 L Beta HCG, Quant 694737.00 H Urine Ketones TRACE H Urine Nitrite POSITIVE H - Diagnostic Test Radiology reviewed: Image reviewed, Reports reviewed - Diagnostic report text EXAM DESCRIPTION: U/S OB TRANSVAG W/DOPPLER COMPLETED DATE/TIME: 01/12/2017 5 :59 pm REASON FOR STUDY: pelvic pain, COMPARISON: 11/21/2016 TECHNIQUE: Transvaginal static and realtime grayscale images acquired of the pelvis. Additional selected spectral and color Doppler images recorded. All images stored on PACs. [facility] [id number] LIMITATIONS: None. FINDINGS: FETUS: Living intrauterine . EGA: 7 weeks 5 days. KELVIN: 08/26/2017. FHR: 157 beats per minute. SUBCHORIONIC BLEED: No. SIZE OF BLEED: Not applicable. UTERUS: No masses. No anomalies. RIGHT ADNEXA: Normal ovary with normal vascular flow. No adnexal free fluid. No adnexal masses. LEFT ADNEXA: Normal ovary with normal vascular flow. No adnexal free fluid. No adnexal masses. FREE FLUID: None. OTHER: No other significant finding. IMPRESSION: LIVING INTRAUTERINE . EGA 7 WEEKS 5 DAYS. Trimester of : First - 0 to 13 weeks Procedures - Pelvic Exam Pelvic exam Cultures obtained: Yes Wet prep obtained: Yes Herpes culture obtained: No POC sent to lab: No Foreign body removed: No Bimanual exam performed: Yes Witnessed by: CHANDRIKA moreno Discharge - Discharge Clinical Impression: Bacterial vaginosis Vaginal discharge during Qualifiers: Trimester: first trimester Qualified Code(s): O26.891 - Other specified related conditions, first trimester Urinary tract infection Qualifiers: Urinary tract infection type: site unspecified Hematuria presence: without hematuria Qualified Code(s): N39.0 - Urinary tract infection, site not specified Condition: Stable Disposition: HOME, SELF-CARE Instructions: [employer] Doctors, [facility], Vaginosis, Bacterial ([facility]), Urinary Tract Infection ([facility]), Cephalexin ([facility]), Metronidazole ([facility]) Additional Instructions: *You have been evaluated for vaginal discharge, vaginal pain, , UTI, Bacterial vaginosis *A urine culture is pending, you will be contacted should you need different antibiotics *Take medication as prescribed for UTI and Bacterial vaginosis *Follow up with your MARKET ANALYST or the health department for recheck *Avoid sexual intercourse until follow up *Return to ED for worsening condition, changes, needs The Ultrasound showed a FETUS: Living intrauterine , 7 weeks 5 days. KELVIN: 08/26/2017. FHR: 157 beats per minute. Prescriptions: Cephalexin Monohydrate [Keflex 250 mg Capsule] 250 mg PO QID #20 cap Metronidazole [Flagyl 500 mg Tablet] 500 mg PO BID #14 tablet Referrals: DONNY WARNER MD [Primary Care Provider] - Follow up in 3-5 days
[2017-01-12 16:33] LABS: ALANINE AMINOTRANSFERASE 36 U/L (9-52); ALBUMIN 3.9 g/dL (3.5-5.0); ALKALINE PHOSPHATASE 59 U/L (38-126); ANION GAP 10 (5-19); ASPARTATE AMINO TRANSFERASE 25 U/L (14-36); BILIRUBIN,DIRECT 0.2 mg/dL (0.0-0.4); BILIRUBIN,TOTAL 0.6 mg/dL (0.2-1.3); BLOOD UREA NITROGEN 7 mg/dL (7-20); CALCIUM 9.7 mg/dL (8.4-10.2); CARBON DIOXIDE 24 mmol/L (22-30); CHLORIDE 100 mmol/L (98-107); CREATININE RESULT 0.78 mg/dL (0.52-1.25); GLUCOSE 82 mg/dL (75-110); POTASSIUM 3.9 mmol/L (3.6-5.0); SODIUM 134.2 mmol/L (137-145); TOTAL PROTEIN 7.1 g/dL (6.3-8.2)
--- NOTE | 2017-01-12 18:10 | RADIOLOGY REPORT (SQ) ---
EXAM DESCRIPTION: U/S OB TRANSVAG W/DOPPLER COMPLETED DATE/TIME: 01/12/2017 5:59 pm REASON FOR STUDY: pelvic pain, COMPARISON: 11/21/2016 TECHNIQUE: Transvaginal static and realtime grayscale images acquired of the pelvis. Additional cecil cted spectral and color Doppler images recorded. All images stored on PACs. [id number] LIMITATIONS: None. FINDINGS: FETUS: Living intrauterine . EGA: 7 weeks 5 days. KELVIN: 08/26/2017. FHR: 157 beats per minute. SUBCHORIONIC BLEED: No. SIZE OF BLEED: Not applicable. UTERUS: No masses. No anomalies. RIGHT ADNEXA: Normal ovary with normal vascular flow. No adnexal free fluid. No adnexal masses. LEFT ADNEXA: Normal ovary with normal vascular flow. No adnexal free fluid. No adnexal masses. FREE FLUID: None. OTHER: No other significant finding. IMPRESSION: LIVING INTRAUTERINE . EGA 7 WEEKS 5 DAYS. Trimester of : First - 0 to 13 weeks. TECHNICAL DOCUMENTATION: JOB ID: [id number] [employer]- All Rights Reserved
[2017-01-12 19:48] LABS: CHLAM PCR NOT DETECTED (NOT DETECT)
== END 2017-01-12 18:46 | disposition home or self-care (01) ==
LOC: ER 14:15
DX: O23.591 Infection of other part of genital tract in pregnancy, first trimester (principal); B96.89 Other specified bacterial agents as the cause of diseases classified elsewhere; O23.41 Unspecified infection of urinary tract in pregnancy, first trimester; O26.891 Other specified pregnancy related conditions, first trimester; R10.2 Pelvic and perineal pain; O99.331 Smoking (tobacco) complicating pregnancy, first trimester; F17.210 Nicotine dependence, cigarettes, uncomplicated; Z3A.01 Less than 8 weeks gestation of pregnancy; R42 Dizziness and giddiness
CPT/HCPCS: 99284; 86900; 86901; 36415; 87086; 87210; 84702; 85025; 87088; 80053; 81001; 87186; 87491; 87591; 76817; 93976; S0119

== ENCOUNTER 2017-05-25 01:02 | Outpatient (CLI) | payer MEDICAID ==
[2017-05-25 01:35] LABS: APPEARANCE,URINE CLEAR; BILIRUBIN,URINE NEGATIVE (NEGATIVE); GLUCOSE, URINE NEGATIVE (NEGATIVE); KETONES,URINE NEGATIVE (NEGATIVE); LEUKOCYTE ESTERASE,URINE TRACE (NEGATIVE); NITRITE,URINE NEGATIVE (NEGATIVE); PROTEIN,URINE NEGATIVE (NEGATIVE); URINE SPECIFIC GRAVITY 1.005; UROBILINOGEN,URINE NEGATIVE mg/dL (<2.0)
[2017-05-25 02:27] LABS: ABSOLUTE EOSINOPHILS # (AUTO) 0.1 10^3/uL (0.0-0.6); ABSOLUTE LYMPHOCYTES (AUTO) 2.1 10^3/uL (0.5-4.7); ABSOLUTE MONOCYTES (AUTO) 0.7 10^3/uL (0.1-1.4); ABSOLUTE NEUT (AUTO) 4.3 10^3/uL (1.7-8.2); BASOPHILS % (AUTO) 0.6 % (0-2); EOSINOPHILS % (AUTO) 1.1 % (0-6); HEMATOCRIT 27.7 % (36.0-47.0); HEMOGLOBIN 9.6 g/dL (12.0-15.5); HGB HCT DIFFERENCE 1.1; MEAN CORPUSCULAR HEMOGLOBIN 29.1 pg (27.0-33.4); MEAN CORPUSCULAR HGB CONC 34.7 g/dL (32.0-36.0); MEAN CORPUSCULAR VOLUME 84 fl (80-97); MONOCYTES % (AUTO) 9.8 % (3-13); RED CELL DISTRIBUTION WIDTH 15.3 % (11.5-14.0); SEGMENTED NEUTROPHILS % (AUTO) 59.5 % (42-78); WHITE BLOOD COUNT 7.2 10^3/uL (4.0-10.5)
[2017-05-25 03:09] LABS: URINE BARBITURATES SCREEN NEGATIVE; URINE METHADONE SCREEN NEGATIVE; URINE OPIATES LOW NEGATIVE; URINE PHENCYCLIDINE SCREEN NEGATIVE
[2017-05-25 03:20] LABS: ADD HIVPANEL? NO; HIV (1 AND 2) ANTIBODY NEGATIVE (NEGATIVE)
--- NOTE | 2017-05-25 03:51 | RADIOLOGY REPORT (SQ) ---
EXAM DESCRIPTION: U/S OB LIMITED CLINICAL HISTORY: 31 years, Female, Cervical length to rule out labor COMPARISON: None. TECHNIQUE: Grayscale ultrasound was utilized to perform this examination. LIMITATIONS: None. FINDINGS: Cervical length equals 2.4 cm. The cervical os is closed. No evidence of placenta previa. Consistent heart rate of 144 bpm using M-mode technique. Patient is in cephalic orientation. IMPRESSION: Single living fetus in cephalic orientation. Cervical length equals 2.4 cm. Cervical os is closed. No placenta previa. 2011 [employer]- All Rights Reserved
[2017-05-26 13:39] LABS: HEPATITIS C VIRUS AB <0.1 s/co ratio (0.0-0.9)
== END 2017-05-25 03:53 | disposition home or self-care (01) ==
LOC: LC 01:02
PROVIDERS: ATTEND Obstetrics & Gynecology
PROC: 4A1HXCZ Monitoring of Products of Conception, Cardiac Rate, External Approach (ICD-10-PCS; principal; 2017-05-25)
DX: O47.03 False labor before 37 completed weeks of gestation, third trimester (principal); Z3A.29 29 weeks gestation of pregnancy
CPT/HCPCS: 36415; 76815; 80307; 81001; 85025; 86592; 86701; 86762; 86803; 86804; 86850; 86900; 86901; 87340

== ENCOUNTER 2017-07-09 14:08 | Outpatient (CLI) | payer MEDICAID ==
[2017-07-09 15:33] LABS: AMORPHOUS SEDIMENT,URINE TRACE /HPF; APPEARANCE,URINE SLIGHTLY-CLOUDY; BILIRUBIN,URINE NEGATIVE (NEGATIVE); GLUCOSE, URINE NEGATIVE (NEGATIVE); KETONES,URINE NEGATIVE (NEGATIVE); LEUKOCYTE ESTERASE,URINE TRACE (NEGATIVE); NITRITE,URINE NEGATIVE (NEGATIVE); PROTEIN,URINE 100 mg/dL (NEGATIVE); URINE SPECIFIC GRAVITY 1.016; UROBILINOGEN,URINE NEGATIVE mg/dL (<2.0)
[2017-07-09 15:47] LABS: URINE BARBITURATES SCREEN NEGATIVE; URINE METHADONE SCREEN NEGATIVE; URINE OPIATES LOW NEGATIVE; URINE PHENCYCLIDINE SCREEN NEGATIVE
== END 2017-07-09 16:03 | disposition home or self-care (01) ==
LOC: LC 14:08
PROVIDERS: ATTEND Obstetrics & Gynecology Gynecology
PROC: 4A1HXCZ Monitoring of Products of Conception, Cardiac Rate, External Approach (ICD-10-PCS; principal; 2017-07-09)
DX: O47.03 False labor before 37 completed weeks of gestation, third trimester (principal); Z3A.33 33 weeks gestation of pregnancy
CPT/HCPCS: 80307; 81001

== ENCOUNTER 2017-08-09 14:15 | Outpatient (CLI) | payer MEDICAID ==
--- NOTE | 2017-08-09 14:21 | Non Stress Test Report ---
Non Stress Test Datetime Report Generated by CPN: 08/09/2017 14:21 DEMOGRAPHIC EGA NST: 33.1 INDICATION Indication for Study: Ordered by Provider MONITORING Monitor Explained: Monitor Explained; Test Explained; Patient Verbalized Understanding Time on Monitor: 07/09/2017 14:31 Time off Monitor: 07/09/2017 15:46 NST Duration: 75 NST INTERVENTIONS NST Interventions: PO Hydration Physician Notified NST: H Justino CNM/Morel MD BABY A: [id number] BABY A Movement : Present Contraction Frequency : none FHR Baseline : 135 Accelerations : 15X15 Decelerations : None Variability : Moderate 6-25bpm NST Review: Meets Criteria for Reactive NST NST Review and Verified By : RYAN Finney Results: Reactive NST REPORT Report Trigger: Send Report
[2017-08-09 15:08] LABS: APPEARANCE,URINE CLEAR; BILIRUBIN,URINE NEGATIVE (NEGATIVE); GLUCOSE, URINE NEGATIVE (NEGATIVE); KETONES,URINE NEGATIVE (NEGATIVE); LEUKOCYTE ESTERASE,URINE TRACE (NEGATIVE); NITRITE,URINE NEGATIVE (NEGATIVE); PROTEIN,URINE 30 mg/dL (NEGATIVE); URINE SPECIFIC GRAVITY 1.012; UROBILINOGEN,URINE NEGATIVE mg/dL (<2.0)
[2017-08-09 15:18] LABS: AMNISURE (ROM) NEGATIVE (NEGATIVE)
[2017-08-09 15:25] LABS: URINE BARBITURATES SCREEN NEGATIVE; URINE METHADONE SCREEN NEGATIVE; URINE OPIATES LOW NEGATIVE; URINE PHENCYCLIDINE SCREEN NEGATIVE
== END 2017-08-09 16:17 | disposition home or self-care (01) ==
LOC: LC 14:15
PROVIDERS: ATTEND Obstetrics & Gynecology
PROC: 4A1HXCZ Monitoring of Products of Conception, Cardiac Rate, External Approach (ICD-10-PCS; principal; 2017-08-09)
DX: O47.1 False labor at or after 37 completed weeks of gestation (principal); Z3A.37 37 weeks gestation of pregnancy
CPT/HCPCS: 59025; 80307; 81005; 84112

== ENCOUNTER 2017-08-10 14:19 | Outpatient (CLI) | payer MEDICAID ==
[2017-08-10 14:52] LABS: APPEARANCE,URINE CLEAR; BILIRUBIN,URINE NEGATIVE (NEGATIVE); GLUCOSE, URINE NEGATIVE (NEGATIVE); KETONES,URINE NEGATIVE (NEGATIVE); LEUKOCYTE ESTERASE,URINE NEGATIVE (NEGATIVE); NITRITE,URINE NEGATIVE (NEGATIVE); PROTEIN,URINE 100 mg/dL (NEGATIVE); URINE SPECIFIC GRAVITY 1.008; UROBILINOGEN,URINE NEGATIVE mg/dL (<2.0)
[2017-08-10 15:04] LABS: URINE BARBITURATES SCREEN NEGATIVE; URINE METHADONE SCREEN NEGATIVE; URINE OPIATES LOW NEGATIVE; URINE PHENCYCLIDINE SCREEN NEGATIVE
[2017-08-10 16:08] LABS: ABSOLUTE BASOPHILS # (AUTO) 0.1 10^3/uL (0.0-0.2); ABSOLUTE LYMPHOCYTES (AUTO) 1.8 10^3/uL (0.5-4.7); ABSOLUTE MONOCYTES (AUTO) 0.9 10^3/uL (0.1-1.4); ABSOLUTE NEUT (AUTO) 6.6 10^3/uL (1.7-8.2); BASOPHILS % (AUTO) 0.7 % (0-2); EOSINOPHILS % (AUTO) 0.5 % (0-6); HEMATOCRIT 28.6 % (36.0-47.0); HEMOGLOBIN 9.6 g/dL (12.0-15.5); HGB HCT DIFFERENCE 0.2; LYMPHOCYTES % (AUTO) 19.2 % (13-45); MEAN CORPUSCULAR HEMOGLOBIN 28.2 pg (27.0-33.4); MEAN CORPUSCULAR HGB CONC 33.5 g/dL (32.0-36.0); MEAN CORPUSCULAR VOLUME 84 fl (80-97); MONOCYTES % (AUTO) 9.3 % (3-13); RED BLOOD COUNT 3.41 10^6/uL (3.72-5.28); RED CELL DISTRIBUTION WIDTH 15.9 % (11.5-14.0); SEGMENTED NEUTROPHILS % (AUTO) 70.3 % (42-78); WHITE BLOOD COUNT 9.3 10^3/uL (4.0-10.5)
[2017-08-10 16:36] LABS: ALANINE AMINOTRANSFERASE 32 U/L (9-52); ALBUMIN 3.2 g/dL (3.5-5.0); ALKALINE PHOSPHATASE 111 U/L (38-126); ASPARTATE AMINO TRANSFERASE 35 U/L (14-36); BILIRUBIN,DIRECT 0.2 mg/dL (0.0-0.4); BILIRUBIN,TOTAL 0.3 mg/dL (0.2-1.3); TOTAL PROTEIN 5.8 g/dL (6.3-8.2)
[2017-08-10 17:17] LABS: ADD HIVPANEL? NO; HIV (1 AND 2) ANTIBODY NEGATIVE (NEGATIVE)
--- NOTE | 2017-08-10 18:31 | Non Stress Test Report ---
Non Stress Test Datetime Report Generated by CPN: 08/10/2017 18:30 DEMOGRAPHIC EGA NST: 37.5 EGA NST: 37.4 INDICATION Indication for Study: Ordered by Provider Indication for Study: Other Indication for Study (NST) Other: LC Indication for Study (NST) Other: LABOR CHECK MONITORING Monitor Explained: Monitor Explained; Test Explained Monitor Explained: Monitor Explained; Test Explained; Patient Verbalized Understanding Time on Monitor: 08/10/2017 14:45 Time on Monitor: 08/09/2017 15:05 Time off Monitor: 08/10/2017 18:11 Time off Monitor: 08/09/2017 16:02 NST Duration: 206 NST Duration: 57 NST INTERVENTIONS NST Interventions: PO Hydration Physician Notified NST: Dr. Rome Physician Notified NST: J LANCE, CNM REVIEWED STRIP BABY A: [id number] BABY A Movement : Present Movement : Present Contraction Frequency : Irr Contraction Frequency : occ FHR Baseline : 135 FHR Baseline : 130 Accelerations : 15X15 Accelerations : 15X15 Decelerations : Early Decelerations : None Variability : Moderate 6-25bpm Variability : Moderate 6-25bpm NST Review: Meets Criteria for Reactive NST NST Review: Meets Criteria for Reactive NST NST Review and Verified By : SALINA NEELY RN NST Results: Reactive NST Results: Reactive NST REPORT Report Trigger: Send Report
[2017-08-13 07:07] LABS: HEPATITIS B AS IU/ML 2 <10 IU/mL (.)
== END 2017-08-10 18:30 | disposition home or self-care (01) ==
LOC: LC 14:19
PROVIDERS: ATTEND Obstetrics & Gynecology
PROC: 4A1HXCZ Monitoring of Products of Conception, Cardiac Rate, External Approach (ICD-10-PCS; principal; 2017-08-10)
DX: O76 Abnormality in fetal heart rate and rhythm complicating labor and delivery (principal); O46.93 Antepartum hemorrhage, unspecified, third trimester; R10.9 Unspecified abdominal pain; Z3A.37 37 weeks gestation of pregnancy
CPT/HCPCS: 36415; 59025; 80076; 80307; 81001; 85025; 86592; 86701; 87077; 87081; 87340; 87350; 87491; 87517; 87591

== ENCOUNTER 2017-09-06 05:21 | Inpatient (IN) | payer MEDICAID ==
[2017-09-06] MEDS ORDERED: DIPHENHYDRAMINE HCL 50 MG/ML VIAL IV ONE (06:46)
[2017-09-06] MEDS ORDERED: METOCLOPRAMIDE HCL INJ/PF 10 MG/2 ML SDV IV ONE (06:46)
[2017-09-06] MEDS ORDERED: NORMAL SALINE 1000 ML 1,000 ML IV ONE (06:46)
--- NOTE | 2017-09-06 06:47 | ER Document Report ---
ED Headache - General Chief Complaint: Headache Stated Complaint: HEADACHE Time Seen by Provider: 09/06/17 06:45 Notes: The patient is a 31-year-old female, recent vaginal delivery 3 days ago, presents with 1 day of a left-sided frontal headache that is constant. She has had headaches in the past similar to this, but they usually go away without any intervention. No active vaginal bleeding. She denies focal weakness, numbness , tingling, blurry vision, ataxia, chest pain, shortness of breath, seizures, neck pain or fevers. TRAVEL OUTSIDE OF THE [place] IN LAST 30 DAYS: No - Related Data Allergies/Adverse Reactions: No Known Allergies Allergy (Verified 09/06/17 05:27) Past Medical History - General Information source: Patient - Social History Smoking Status: Former Smoker Chew tobacco use (# tins/day): No Frequency of alcohol use: None Drug Abuse: None Family History: Arthritis, CAD, CVA, DM, Hyperlipidemia, Hypertension, Malignancy Patient has suicidal ideation: No Patient has homicidal ideation: No - Past Medical History Cardiac Medical History: Denies: Hx Coronary Artery Disease, Hx Heart Attack, Hx Hypertension Pulmonary Medical History: Denies: Hx Asthma, Hx Bronchitis, Hx COPD, Hx Pneumonia Neurological Medical History: Denies: Hx Cerebrovascular Accident, Hx Seizures Renal/ Medical History: Denies: Hx Peritoneal Dialysis Musculoskeltal Medical History: Denies Hx Arthritis Psychiatric Medical History: Reports: Hx Bipolar Disorder - Immunizations Immunizations up to date: Yes Hx Diphtheria, Pertussis, Tetanus Vaccination: Yes Hx Pneumococcal Vaccination: 08/23/00 Review of Systems - Review of Systems Notes: REVIEW OF SYSTEMS: CONSTITUTIONAL: -fevers, -chills EENT: -eye pain, -difficulty swallowing, -nasal congestion CARDIOVASCULAR: -chest pain, -syncope. RESPIRATORY: -cough, -SOB GASTROINTESTINAL: -abdominal pain, -nausea, -vomiting, -diarrhea GENITOURINARY: -dysuria, -hematuria MUSCULOSKELETAL: -back pain, -neck pain SKIN: -rash or skin lesions. HEMATOLOGIC: -easy bruising or bleeding. LYMPHATIC: -swollen, enlarged glands. NEUROLOGICAL: -altered mental status or loss of consciousness, +headache, - neurologic symptoms PSYCHIATRIC: -anxiety, -depression. ALL OTHER SYSTEMS REVIEWED AND NEGATIVE. Physical Exam - Vital signs Vitals: Temp Pulse Resp BP Pulse Ox 97.8 F 60 16 146/98 H 100 09/06/17 05:27 09/06/17 05:27 09/06/17 05:27 09/06/17 05:27 09/06/17 05:27 - Notes Notes: PHYSICAL EXAMINATION: GENERAL: Well-appearing, well-nourished and in no acute distress. HEAD: Atraumatic, normocephalic. EYES: Pupils equal round and reactive to light, extraocular movements intact, sclera anicteric, conjunctiva are normal. ENT: nares patent, oropharynx clear without exudates. Moist mucous membranes. NECK: Normal range of motion, supple without lymphadenopathy LUNGS: Breath sounds clear to auscultation bilaterally and equal. No wheezes rales or rhonchi. HEART: Regular rate and rhythm without murmurs ABDOMEN: Soft, nontender, normoactive bowel sounds. No guarding, no rebound. No masses appreciated. EXTREMITIES: Normal range of motion, no pitting or edema. No cyanosis. NEUROLOGICAL: Cranial nerves grossly intact. Normal speech, normal gait. Normal sensory and motor exams. PSYCH: Normal mood, normal affect. SKIN: Warm, Dry, normal turgor, no rashes or lesions noted. Course - Re-evaluation Re-evalutation: Pt with headache and hypertension 3 days after a spontaneous vaginal delivery. Concern for preeclampsia. Pt has high protein in her urine, elevated LFTs and hypertension with a headache. This is consistent with preeclampsia. 09/06/17 07:[address] Rome and will admit patient to L&D floor for further treatment and monitoring. Recommending sending uric acid, cath urine for urine protein/creatinine ratio and high dose magnesium. - Vital Signs Vital signs: Temp Pulse Resp BP Pulse Ox 97.8 F 60 13 169/104 H 100 09/06/17 05:27 09/06/17 05:27 09/06/17 07:06 09/06/17 07:06 09/06/17 07:06 - Laboratory Result Diagrams: 09/06/17 07:00 09/06/17 07:00 Laboratory results interpreted by me: 09/06/17 09/06/17 09/06/17 07:00 07:00 07:00 Hgb 10.0 L Hct 31.2 L MCH 26.7 L RDW 18.2 H BUN 22 H AST 47 H ALT 65 H Total Protein 6.2 L Albumin 3.3 L Urine Protein 30 H Urine Blood LARGE H Ur Leukocyte Esterase TRACE H Discharge - Discharge Clinical Impression: Pre-eclampsia Qualifiers: Trimester: unspecified trimester Qualified Code(s): O14.90 - Unspecified pre- eclampsia, unspecified trimester Condition: Stable Disposition: ADMITTED INPATIENT Admitting Provider: [facility] Admitted: Labor and Delivery
[2017-09-06] MEDS ORDERED: MAGNESIUM SULFATE/D5W 1 GM/100 ML RTUPB IV SCH (07:00)
[2017-09-06] MEDS ORDERED: LABETALOL HCL INJ 20 MG/4 ML DISP.SYRIN IV ONE (07:21)
[2017-09-06 07:22] LABS: ABSOLUTE BASOPHILS # (AUTO) 0.1 10^3/uL (0.0-0.2); ABSOLUTE EOSINOPHILS # (AUTO) 0.1 10^3/uL (0.0-0.6); ABSOLUTE LYMPHOCYTES (AUTO) 2.6 10^3/uL (0.5-4.7); ABSOLUTE MONOCYTES (AUTO) 0.7 10^3/uL (0.1-1.4); ABSOLUTE NEUT (AUTO) 3.4 10^3/uL (1.7-8.2); EOSINOPHILS % (AUTO) 1.9 % (0-6); HEMATOCRIT 31.2 % (36.0-47.0); LYMPHOCYTES % (AUTO) 37.9 % (13-45); MEAN CORPUSCULAR HEMOGLOBIN 26.7 pg (27.0-33.4); MEAN CORPUSCULAR HGB CONC 32.1 g/dL (32.0-36.0); MEAN CORPUSCULAR VOLUME 83 fl (80-97); MONOCYTES % (AUTO) 9.7 % (3-13); PLATELET COUNT 225 10^3/uL (150-450); RED BLOOD COUNT 3.75 10^6/uL (3.72-5.28); RED CELL DISTRIBUTION WIDTH 18.2 % (11.5-14.0); SEGMENTED NEUTROPHILS % (AUTO) 49.5 % (42-78); TOTAL CELLS COUNTED % (AUTO) 100 %; WHITE BLOOD COUNT 6.8 10^3/uL (4.0-10.5)
[2017-09-06 07:25] LABS: APPEARANCE,URINE CLEAR; BILIRUBIN,URINE NEGATIVE (NEGATIVE); COLOR,URINE YELLOW; GLUCOSE, URINE NEGATIVE (NEGATIVE); KETONES,URINE NEGATIVE (NEGATIVE); LEUKOCYTE ESTERASE,URINE TRACE (NEGATIVE); NITRITE,URINE NEGATIVE (NEGATIVE); PROTEIN,URINE 30 mg/dL (NEGATIVE); URINE SPECIFIC GRAVITY 1.013; UROBILINOGEN,URINE NEGATIVE mg/dL (<2.0)
[2017-09-06 07:41] LABS: ALANINE AMINOTRANSFERASE 65 U/L (9-52); ALBUMIN 3.3 g/dL (3.5-5.0); ALKALINE PHOSPHATASE 86 U/L (38-126); ANION GAP 9 (5-19); ASPARTATE AMINO TRANSFERASE 47 U/L (14-36); BILIRUBIN,DIRECT 0.2 mg/dL (0.0-0.4); BILIRUBIN,TOTAL 0.2 mg/dL (0.2-1.3); BLOOD UREA NITROGEN 22 mg/dL (7-20); CALCIUM 9.5 mg/dL (8.4-10.2); CARBON DIOXIDE 26 mmol/L (22-30); CHLORIDE 107 mmol/L (98-107); GLUCOSE 76 mg/dL (75-110); POTASSIUM 4.1 mmol/L (3.6-5.0); SODIUM 142.2 mmol/L (137-145); TOTAL PROTEIN 6.2 g/dL (6.3-8.2)
[2017-09-06 08:45] LABS: UR PRO/CREAT RATIO RESULT 0.4 mg/mg (0.0-0.2); URINE CREATININE 85.3 mg/dL (16-327); URINE PROTEIN 37.4 mg/dL (<12)
[2017-09-06 08:48] LABS: APPEARANCE,URINE CLEAR; BILIRUBIN,URINE NEGATIVE (NEGATIVE); COLOR,URINE COLORLESS; GLUCOSE, URINE NEGATIVE (NEGATIVE); KETONES,URINE NEGATIVE (NEGATIVE); LEUKOCYTE ESTERASE,URINE NEGATIVE (NEGATIVE); NITRITE,URINE NEGATIVE (NEGATIVE); PROTEIN,URINE NEGATIVE (NEGATIVE); URINE SPECIFIC GRAVITY 1.005; UROBILINOGEN,URINE NEGATIVE mg/dL (<2.0)
[2017-09-06 08:50] VITALS: BP 181/97
[2017-09-06 09:06] LABS: URINE AMPHETAMINES SCREEN NEGATIVE; URINE BARBITURATES SCREEN NEGATIVE; URINE BENZODIAZEPINES SCREEN NEGATIVE; URINE COCAINE SCREEN NEGATIVE; URINE MARIJUANA (THC) SCREEN NEGATIVE; URINE METHADONE SCREEN NEGATIVE; URINE PHENCYCLIDINE SCREEN NEGATIVE
[2017-09-06] MEDS: MAGNESIUM SULFATE 20 GM/500 ML RTUINJ IV PRN ×3 (09:32→17:12)
[2017-09-06] MEDS ORDERED: BUTALB/ACETAMINOPHEN/CAFFEINE 1 TAB EACH ONE (09:58)
[2017-09-06 14:55] LABS: ABSOLUTE BASOPHILS # (AUTO) 0.1 10^3/uL (0.0-0.2); ABSOLUTE EOSINOPHILS # (AUTO) 0.1 10^3/uL (0.0-0.6); ABSOLUTE LYMPHOCYTES (AUTO) 2.3 10^3/uL (0.5-4.7); ABSOLUTE MONOCYTES (AUTO) 0.5 10^3/uL (0.1-1.4); ABSOLUTE NEUT (AUTO) 3.5 10^3/uL (1.7-8.2); BASOPHILS % (AUTO) 0.9 % (0-2); EOSINOPHILS % (AUTO) 1.3 % (0-6); HEMATOCRIT 29.4 % (36.0-47.0); HEMOGLOBIN 9.7 g/dL (12.0-15.5); LYMPHOCYTES % (AUTO) 36.5 % (13-45); MEAN CORPUSCULAR HEMOGLOBIN 27.2 pg (27.0-33.4); MEAN CORPUSCULAR VOLUME 82 fl (80-97); MONOCYTES % (AUTO) 7.2 % (3-13); PLATELET COUNT 225 10^3/uL (150-450); RED BLOOD COUNT 3.57 10^6/uL (3.72-5.28); RED CELL DISTRIBUTION WIDTH 18.2 % (11.5-14.0); SEGMENTED NEUTROPHILS % (AUTO) 54.1 % (42-78); TOTAL CELLS COUNTED % (AUTO) 100 %; WHITE BLOOD COUNT 6.4 10^3/uL (4.0-10.5)
[2017-09-06 15:09] LABS: ALANINE AMINOTRANSFERASE 59 U/L (9-52); ALBUMIN 2.9 g/dL (3.5-5.0); ALKALINE PHOSPHATASE 84 U/L (38-126); ANION GAP 7 (5-19); ASPARTATE AMINO TRANSFERASE 41 U/L (14-36); BILIRUBIN,DIRECT 0.1 mg/dL (0.0-0.4); BILIRUBIN,TOTAL 0.1 mg/dL (0.2-1.3); BLOOD UREA NITROGEN 17 mg/dL (7-20); CALCIUM 8.6 mg/dL (8.4-10.2); CARBON DIOXIDE 25 mmol/L (22-30); CHLORIDE 107 mmol/L (98-107); GLUCOSE 99 mg/dL (75-110); LDH 599 U/L (313-618); SODIUM 139.2 mmol/L (137-145); TOTAL PROTEIN 5.6 g/dL (6.3-8.2); URIC ACID 8.1 mg/dL (2.5-6.2)
--- NOTE | 2017-09-07 00:24 | PDOC DISCHARGE SUMMARY ---
General - Admit/Disc Date/PCP Admission Date/Primary Care Provider: 09/06/17 08:13 Discharge Date: 09/07/17 - Additional Information Resuscitation Status: Full Code Home Medications: No Home Medications 09/06/17 History of Present Illness History of Present Illness: LOC SWARTZ is a 31 year old female Hospital Course Hospital Course: placed on magnesium sulfate x 12 hours for preeclampsia. Patient requesting discharge home due to court hearing in the AM. BPs have been stable in the 130-140s/80s-90s. Physical Exam - Physical Exam Vital Signs: Temp Pulse Resp BP Pulse Ox 97.8 F 60 21 H 181/97 H 100 09/06/17 05:27 09/06/17 05:27 09/06/17 08:43 09/06/17 08:44 09/06/17 08:43 Result Laboratory Results: 09/06/17 14:45 09/06/17 14:45 09/06/17 09/06/17 14:45 14:45 WBC 6.4 RBC 3.57 L Hgb 9.7 L Hct 29.4 L MCV 82 MCH 27.2 MCHC 33.0 RDW 18.2 H Plt Count 225 Seg Neutrophils % 54.1 Lymphocytes % 36.5 Monocytes % 7.2 Eosinophils % 1.3 Basophils % 0.9 Absolute Neutrophils 3.5 Absolute Lymphocytes 2.3 Absolute Monocytes 0.5 Absolute Eosinophils 0.1 Absolute Basophils 0.1 Sodium 139.2 Potassium 4.0 Chloride 107 Carbon Dioxide 25 Anion Gap 7 BUN 17 Creatinine 0.87 Est GFR ( Amer) > 60 Est GFR (Non-Af Amer) > 60 Glucose 99 Uric Acid 8.1 H Calcium 8.6 Magnesium 5.7 H* Total Bilirubin 0.1 L AST 41 H ALT 59 H Alkaline Phosphatase 84 Total Protein 5.6 L Albumin 2.9 L Plan Discharge Plan: discharge home with instructions to follow up with OB in 1 week for bp check Time Spent: Greater than 30 Minutes
== END 2017-09-07 00:58 | disposition home or self-care (01) | DRG 776 ==
LOC: ER 05:21 → UNDOADMIN 08:13 → EH 08:13 → LR 08:13 → 2S 11:44 → LR 12:05
PROVIDERS: ADMIT Obstetrics & Gynecology; ATTEND Obstetrics & Gynecology
DX: O14.95 Unspecified pre-eclampsia, complicating the puerperium (principal); Z87.891 Personal history of nicotine dependence; Z82.61 Family history of arthritis; Z82.3 Family history of stroke; Z83.3 Family history of diabetes mellitus; Z80.9 Family history of malignant neoplasm, unspecified; Z82.49 Family history of ischemic heart disease and other diseases of the circulatory system
CPT/HCPCS: 36415; 51702; 80053; 80307; 81001; 82570; 83615; 83690; 83735; 84156; 84550; 85025; 96365; 96375; 99285; J1200; J2765; J3475; J3490; J7030

== ENCOUNTER 2018-08-30 23:06 | Emergency (ER) | payer MEDICAID ==
--- NOTE | 2018-08-31 00:26 | ER Document Report ---
ED General - General Chief Complaint: Abdominal Cramping Stated Complaint: ABDOMINAL CRAMPING Time Seen by Provider: 08/31/18 00:17 Mode of Arrival: Ambulatory Information source: Patient Notes: 32-year-old female presents emergency department complaints of lower abdominal cramping. She states that is been present for the last day. She denies any radiation of the pain. She denies any alleviating or exacerbating factors. Patient states that she is . She states her last menstrual period was on July 25 but she had some spotting on August 16. Patient states that she took a test yesterday and it came back positive. She denies any vaginal bleeding, vaginal discharge, dysuria, hematuria, increased urgency, increased frequency. Patient denies any nausea, vomiting, diarrhea, constipation. TRAVEL OUTSIDE OF THE [place] IN LAST 30 DAYS: No - HPI Onset: This morning Onset/Duration: Sudden Quality of pain: Cramping Severity: Mild Pain Level: Denies Associated symptoms: None Exacerbated by: Denies Relieved by: Denies Similar symptoms previously: No Recently seen / treated by doctor: No - Related Data Allergies/Adverse Reactions: No Known Allergies Allergy (Verified 06/17/18 22:00) Past Medical History - General Information source: Patient - Social History Smoking Status: Current Every Day Smoker Family History: Arthritis, CAD, CVA, DM, Hyperlipidemia, Hypertension, Malignancy Psychiatric Medical History: Reports: Hx Bipolar Disorder - Immunizations Immunizations up to date: Yes Hx Diphtheria, Pertussis, Tetanus Vaccination: Yes - 06/18/2018 Hx Pneumococcal Vaccination: 08/23/00 Review of Systems - Review of Systems Constitutional: No symptoms reported EENT: No symptoms reported Cardiovascular: No symptoms reported Respiratory: No symptoms reported Gastrointestinal: Abdominal pain Genitourinary: No symptoms reported Female Genitourinary: Musculoskeletal: No symptoms reported Skin: No symptoms reported Hematologic/Lymphatic: No symptoms reported Neurological/Psychological: No symptoms reported -: Yes All other systems reviewed and negative Physical Exam - Vital signs Vitals: Temp Pulse Resp BP Pulse Ox 98.0 F 93 16 119/70 99 08/30/18 23:11 08/30/18 23:11 08/30/18 23:11 08/30/18 23:11 08/30/18 23:11 - Notes Notes: PHYSICAL EXAMINATION: GENERAL: Well-appearing, well-nourished and in no acute distress. HEAD: Atraumatic, normocephalic. EYES: Pupils equal round and reactive to light, extraocular movements intact, conjunctiva are normal. ENT: Nares patent, oropharynx clear without exudates. Moist mucous membranes. NECK: Normal range of motion, supple without lymphadenopathy LUNGS: Breath sounds clear to auscultation bilaterally and equal. No wheezes rales or rhonchi. HEART: Regular rate and rhythm without murmurs ABDOMEN: Soft, nontender, nondistended abdomen. No guarding, no rebound. No masses appreciated. Female : patient declines pelvic exam. Musculoskeletal: Normal range of motion, no pitting or edema. No cyanosis. NEUROLOGICAL: Cranial nerves grossly intact. Normal speech, normal gait. Normal sensory, motor exams PSYCH: Normal mood, normal affect. SKIN: Warm, Dry, normal turgor, no rashes or lesions noted. Course - Re-evaluation Re-evalutation: 08/31/18 03:12 test positive. Quant obtained. Pelvic ultrasound done. IUP of 5 weeks 2 days appreciated. No pole or heart tones. I discussed results with the patient. She continues to decline pelvic exam. I instructed her to follow up with her PCP/OB this week, to use tylenol as needed for discomfort, and to return for worsening symptoms or vaginal bleeding. patient is agreeable with the plan of care. - Vital Signs Vital signs: Temp Pulse Resp BP Pulse Ox 98.0 F 93 16 119/70 99 08/30/18 23:11 08/30/18 23:11 08/30/18 23:11 08/30/18 23:11 08/30/18 23:11 - Laboratory Laboratory results interpreted by me: 08/31/18 08/31/18 00:40 00:45 Beta HCG, Quant 6696.70 H Urine Urobilinogen 4.0 H Urine HCG, Qual POSITIVE H Discharge - Discharge Clinical Impression: Qualifiers: Weeks of gestation: less than 8 weeks Qualified Code(s): Z3A.01 - Less than 8 weeks gestation of Condition: Good Disposition: HOME, SELF-CARE Instructions: ([facility]) Referrals: KAIN GALAENA MD [COMMUNITY BASED STAFF] - Follow up as needed SAIMA DELUCA MD [ACTIVE STAFF] - Follow up as needed
[2018-08-31 01:25] LABS: APPEARANCE,URINE SLIGHTLY-CLOUDY; BILIRUBIN,URINE NEGATIVE (NEGATIVE); COLOR,URINE YELLOW; GLUCOSE, URINE NEGATIVE (NEGATIVE); KETONES,URINE NEGATIVE (NEGATIVE); LEUKOCYTE ESTERASE,URINE NEGATIVE (NEGATIVE); NITRITE,URINE NEGATIVE (NEGATIVE); PROTEIN,URINE NEGATIVE (NEGATIVE); URINE SPECIFIC GRAVITY 1.028
--- NOTE | 2018-08-31 02:48 | RADIOLOGY REPORT (SQ) ---
EXAM DESCRIPTION: US TRANSVAGINAL COMPLETED DATE/TME: 08/31/2018 01:38 CLINICAL HISTORY: 32 years, Female, abdominal cramping COMPARISON: None. TECHNIQUE: Transverse and longitudinal transvaginal sonographic images of the pelvis in a first trimester patient LIMITATIONS: None. FINDINGS: The uterus measures 9.5 x 5.9 x 5.3 cm. The myometrium is homogenous. There is a somewhat ovoid shaped intrauterine gestational sac with yolk sac. No pole or detectable heart tones at this time. Current ultrasound age is 5 weeks 2 days. The right ovary measures 2.7 x 2.1 x 1.2 cm, the left 3.5 x 2.2 x 1.8 cm. No adnexal cyst or mass. Small amount of free fluid. Flow is seen in each ovary. IMPRESSION: Intrauterine gestational sac with faint yolk sac. No detectable heart tones or pole at this time. Current ultrasound age 5 weeks 2 days. Close eccentric follow-up recommended. Small amount of free fluid in the pelvis. copyright 2010 [employer]- All Rights Reserved
[2018-08-31 03:44] VITALS: BP 116/72
== END 2018-08-31 03:25 | disposition home or self-care (01) ==
LOC: ER 23:06
DX: O26.891 Other specified pregnancy related conditions, first trimester (principal); R10.9 Unspecified abdominal pain; R10.30 Lower abdominal pain, unspecified; F17.200 Nicotine dependence, unspecified, uncomplicated; Z3A.01 Less than 8 weeks gestation of pregnancy
CPT/HCPCS: 36415; 76817; 81001; 81025; 84702; 93976; 99284

== ENCOUNTER 2018-10-19 18:01 | Emergency (ER) | payer MEDICAID ==
[2018-10-19] MEDS ORDERED: ONDANSETRON HCL INJ/PF 4 MG/2 ML SDV IV ONE (18:37)
[2018-10-19] MEDS ORDERED: NORMAL SALINE 1000 ML 1,000 ML IV ONE ×2 (18:37→20:49)
[2018-10-19] MEDS ORDERED: KETOROLAC TROMETHAMINE INJ/PF 30 MG/1 ML SDV IV ONE (18:37)
--- NOTE | 2018-10-19 18:40 | ER Document Report ---
ED General - General TRAVEL OUTSIDE OF THE [place] IN LAST 30 DAYS: No <BRIANNA CAMARENA - Last Filed: 10/19/18 18:39> - General Mode of Arrival: Ambulatory Information source: Patient TRAVEL OUTSIDE OF THE [place] IN LAST 30 DAYS: No - HPI Onset: Other - 3 days Onset/Duration: Worse Quality of pain: Sharp Pain Level: 5 Associated symptoms: denies: Chest pain, Nonproductive cough, Productive cough, Diarrhea, Fever, Nausea, Vomiting Exacerbated by: Denies Relieved by: Denies Similar symptoms previously: No Recently seen / treated by doctor: Yes <NITO PATTERSON - Last Filed: 10/20/18 01:34> - General Chief Complaint: Abdominal Pain Stated Complaint: RIGHT SIDE AND BODY PAIN Time Seen by Provider: 10/19/18 18:33 Primary Care Provider: [facility] [Provider Group] - Follow up as needed [facility] [Provider Group] - Follow up as needed Notes: 32 years old female presents today with general body aches and pain for the last 4 days. Also having abdominal pain and lower back pain. Had fever for the last 3 days. Denies any chest pain shortness of breath cough. Denies any dysuria or frequency. Had an September 13. (BRIANNA CAMARENA) Patient reports that she has had right lateral side pain that radiates to the flank area for the past 3 days. Patient states that she did have an on October 15 which was only 4 days ago. Patient denies any fever nausea or vomiting. Patient denies any urinary symptoms. Patient states she did start to have vaginal bleeding today. (NITO PATTERSON) - Related Data Allergies/Adverse Reactions: No Known Allergies Allergy (Verified 10/19/18 18:02) Past Medical History - Social History Smoking Status: Current Every Day Smoker Family History: Arthritis, CAD, CVA, DM, Hyperlipidemia, Hypertension, Malignancy Patient has suicidal ideation: No Patient has homicidal ideation: No Renal/ Medical History: Denies: Hx Peritoneal Dialysis Psychiatric Medical History: Reports: Hx Bipolar Disorder - Immunizations Immunizations up to date: Yes Hx Diphtheria, Pertussis, Tetanus Vaccination: Yes - 06/18/2018 Hx Pneumococcal Vaccination: 08/23/00 <BRIANNA CAMARENA - Last Filed: 10/19/18 18:39> - General Information source: Patient - Social History Smoking Status: Never Smoker Frequency of alcohol use: None Drug Abuse: Cocaine - She denies although urine drug screen was positive Occupation: None Family History: Reviewed & Not Pertinent - Medical History Medical History: Negative Surgical Hx: Negative <NITO PATTERSON - Last Filed: 10/20/18 01:34> Review of Systems - Review of Systems Constitutional: No symptoms reported. denies: Fever EENT: No symptoms reported Cardiovascular: No symptoms reported. denies: Chest pain Respiratory: No symptoms reported. denies: Cough, Short of breath Gastrointestinal: Abdominal pain - Right lateral side. denies: Diarrhea, Nausea, Vomiting Genitourinary: Flank pain. denies: Dysuria Female Genitourinary: Vaginal bleeding, Other - 4 days ago Musculoskeletal: Back pain Skin: No symptoms reported Hematologic/Lymphatic: No symptoms reported Neurological/Psychological: No symptoms reported <NITO PATTERSON - Last Filed: 10/20/18 01:34> Physical Exam - General General appearance: Appears well, Alert In distress: None - HEENT Head: Normocephalic, Atraumatic Eyes: Normal Conjunctiva: Normal Nasal: Normal Mouth/Lips: Normal Mucous membranes: Normal Neck: Normal, Supple. No: Lymphadenopathy - Respiratory Respiratory status: No respiratory distress Chest status: Nontender Breath sounds: Normal. No: Rales, Rhonchi, Stridor, Wheezing Chest palpation: Normal - Cardiovascular Rhythm: Regular Heart sounds: S1 appreciated, S2 appreciated Murmur: No - Abdominal Inspection: Normal Distension: No distension Bowel sounds: Normal Tenderness: Tender - Right lateral side tenderness Organomegaly: No organomegaly - Genitourinary External exam: Normal Speculum exam: Cervix closed Vaginal bleeding: Mild - old appearing Bimanuel exam: Normal. No: Cervical motion tender, Adnexal tenderness - Back Back: CVA tenderness - Bilateral, right worse than left - Extremities General upper extremity: Normal inspection, Normal ROM General lower extremity: Normal inspection, Normal ROM - Neurological Neuro grossly intact: Yes Cognition: Normal Yvette Coma Scale Eye Opening: Spontaneous Yvette Coma Scale Verbal: Oriented Yvette Coma Scale Motor: Obeys Commands Yvette Coma Scale Total: 15 - Psychological Associated symptoms: Normal affect, Normal mood - Skin Skin Temperature: Warm Skin Moisture: Dry Skin Color: Normal <NITO PATTERSON - Last Filed: 10/20/18 01:34> - Vital signs Vitals: Temp Pulse Resp BP Pulse Ox 99.7 F 115 H 16 118/71 97 10/19/18 18:06 10/19/18 18:06 10/19/18 18:06 10/19/18 18:06 10/19/18 18:06 Course - Laboratory Result Diagrams: 10/19/18 19:00 10/19/18 19:00 - Diagnostic Test Radiology reviewed: Reports reviewed <NITO PATTERSON - Last Filed: 10/20/18 01:34> - Re-evaluation Re-evalutation: 10/20/18 Patient with what appears to be early pyelonephritis. No concern for sepsis at this time. Patient with stable vital signs no fever and no leukocytosis. Discussed worsening symptoms that patient should return immediately for. Teresae nt verbalized understanding and agrees with plan of care. (NITO PATTERSON) - Vital Signs Vital signs: Temp Pulse Resp BP Pulse Ox 98.9 F 89 17 112/85 98 10/20/18 00:13 10/20/18 00:13 10/20/18 00:13 10/20/18 00:13 10/20/18 00:13 - Laboratory Laboratory results interpreted by me: 10/19/18 10/19/18 10/19/18 19:00 19:00 19:00 MCV 79 L MCH 26.4 L RDW 19.2 H Plt Count 132 L Monocytes % 14.5 H Sodium 135.7 L Creatinine 1.31 H Est GFR ( Amer) 58 L Est GFR (Non-Af Amer) 48 L Total Protein 8.4 H Beta HCG, Quant Urine Protein 100 H Urine Blood MODERATE H Urine Urobilinogen 4.0 H Ur Leukocyte Esterase LARGE H Urine HCG, Qual POSITIVE H 10/19/18 19:00 MCV MCH RDW Plt Count Monocytes % Sodium Creatinine Est GFR ( Amer) Est GFR (Non-Af Amer) Total Protein Beta HCG, Quant 1887.50 H Urine Protein Urine Blood Urine Urobilinogen Ur Leukocyte Esterase Urine HCG, Qual 10/19/18 23:52 Labs- Entire Visit 10/19/18 10/19/18 10/19/18 18:30 19:00 19:00 WBC 9.3 RBC 4.61 Hgb 12.2 Hct 36.4 MCV 79 L MCH 26.4 L MCHC 33.5 RDW 19.2 H Plt Count 132 L Seg Neutrophils % 68.5 Lymphocytes % 16.4 Monocytes % 14.5 H Eosinophils % 0.0 Basophils % 0.6 Absolute Neutrophils 6.4 Absolute Lymphocytes 1.5 Absolute Monocytes 1.4 Absolute Eosinophils 0.0 Absolute Basophils 0.1 Sodium 135.7 L Potassium 3.9 Chloride 98 Carbon Dioxide 26 Anion Gap 12 BUN 14 Creatinine 1.31 H Est GFR ( Amer) 58 L Est GFR (Non-Af Amer) 48 L Glucose 96 Calcium 9.5 Total Bilirubin 0.6 Direct Bilirubin 0.3 Neonat Total Bilirubin Not Reportable Neonat Direct Bilirubin Not Reportable Neonat Indirect Bili Not Reportable AST 31 ALT 22 Alkaline Phosphatase 73 Total Protein 8.4 H Albumin 4.2 Lipase 71.7 Beta HCG, Quant Total Beta HCG Urine Color Urine Appearance Urine pH Ur Specific Hubertus Urine Protein Urine Glucose (UA) Urine Ketones Urine Blood Urine Nitrite Urine Bilirubin Urine Urobilinogen Ur Leukocyte Esterase Urine WBC (Auto) Urine RBC (Auto) U Hyaline Cast (Auto) Urine Bacteria (Auto) Urine WBC Clumps Squamous Epi Cells Auto U Non-Squamous Epis Auto Urine Mucus (Auto) Urine Ascorbic Acid Urine HCG, Qual Epi Cells (Wet Prep) Bacteria (Wet Prep) Trichomonas (Wet Prep) Vaginal WBC Vaginal RBC Vaginal Yeast Urine Opiates Screen Urine Methadone Screen Ur Barbiturates Screen Ur Phencyclidine Scrn Ur Amphetamines Screen U Benzodiazepines Scrn Urine Cocaine Screen U Marijuana (THC) Screen Influenza A (Rapid) NEGATIVE Influenza B (Rapid) NEGATIVE 10/19/18 10/19/18 10/19/18 19:00 19:00 19:00 WBC RBC Hgb Hct MCV MCH MCHC RDW Plt Count Seg Neutrophils % Lymphocytes % Monocytes % Eosinophils % Basophils % Absolute Neutrophils Absolute Lymphocytes Absolute Monocytes Absolute Eosinophils Absolute Basophils Sodium Potassium Chloride Carbon Dioxide Anion Gap BUN Creatinine Est GFR ( Amer) Est GFR (Non-Af Amer) Glucose Calcium Total Bilirubin Direct Bilirubin Neonat Total Bilirubin Neonat Direct Bilirubin Neonat Indirect Bili AST ALT Alkaline Phosphatase Total Protein Albumin Lipase Beta HCG, Quant 1887.50 H Total Beta HCG POSITIVE Urine Color YELLOW Urine Appearance CLOUDY Urine pH 5.0 Ur Specific Hubert[place] 1.016 Urine Protein 100 H Urine Glucose (UA) NEGATIVE Urine Ketones NEGATIVE Urine Blood MODERATE H Urine Nitrite NEGATIVE Urine Bilirubin NEGATIVE Urine Urobilinogen 4.0 H Ur Leukocyte Esterase LARGE H Urine WBC (Auto) >182 Urine RBC (Auto) 55 U Hyaline Cast (Auto) 3 Urine Bacteria (Auto) 3+ Urine WBC Clumps MOD Squamous Epi Cells Auto 2 U Non-Squamous Epis Auto 1 Urine Mucus (Auto) FEW Urine Ascorbic Acid NEGATIVE Urine HCG, Qual POSITIVE H Epi Cells (Wet Prep) Bacteria (Wet Prep) Trichomonas (Wet Prep) Vaginal WBC Vaginal RBC Vaginal Yeast Urine Opiates Screen NEGATIVE Urine Methadone Screen NEGATIVE Ur Barbiturates Screen NEGATIVE Ur Phencyclidine Scrn NEGATIVE Ur Amphetamines Screen NEGATIVE U Benzodiazepines Scrn NEGATIVE Urine Cocaine Screen UNCONFIRMED POSITIVE U Marijuana (THC) Screen NEGATIVE Influenza A (Rapid) Influenza B (Rapid) 10/19/18 23:15 WBC RBC Hgb Hct MCV MCH MCHC RDW Plt Count Seg Neutrophils % Lymphocytes % Monocytes % Eosinophils % Basophils % Absolute Neutrophils Absolute Lymphocytes Absolute Monocytes Absolute Eosinophils Absolute Basophils Sodium Potassium Chloride Carbon Dioxide Anion Gap BUN Creatinine Est GFR ( Amer) Est GFR (Non-Af Amer) Glucose Calcium Total Bilirubin Direct Bilirubin Neonat Total Bilirubin Neonat Direct Bilirubin Neonat Indirect Bili AST ALT Alkaline Phosphatase Total Protein Albumin Lipase Beta HCG, Quant Total Beta HCG Urine Color Urine Appearance Urine pH Ur Specific Hubertus Urine Protein Urine Glucose (UA) Urine Ketones Urine Blood Urine Nitrite Urine Bilirubin Urine Urobilinogen Ur Leukocyte Esterase Urine WBC (Auto) Urine RBC (Auto) U Hyaline Cast (Auto) Urine Bacteria (Auto) Urine WBC Clumps Squamous Epi Cells Auto U Non-Squamous Epis Auto Urine Mucus (Auto) Urine Ascorbic Acid Urine HCG, Qual Epi Cells (Wet Prep) 4+ EPITHELIALS SEEN Bacteria (Wet Prep) 4+ BACTERIA SEEN Trichomonas (Wet Prep) NO TRICHOMONAS SEEN Vaginal WBC FEW WBCS SEEN Vaginal RBC 2+ RBCS SEEN Vaginal Yeast NO YEAST SEEN Urine Opiates Screen Urine Methadone Screen Ur Barbiturates Screen Ur Phencyclidine Scrn Ur Amphetamines Screen U Benzodiazepines Scrn Urine Cocaine Screen U Marijuana (THC) Screen Influenza A (Rapid) Influenza B (Rapid) (NITO PATTERSON) Discharge <BRIANNA CAMARENA - Last Filed: 10/19/18 18:39> <NITO PATTERSON - Last Filed: 10/20/18 01:34> - Discharge Clinical Impression: Pyelonephritis Condition: Stable Disposition: HOME, SELF-CARE Instructions: Antibiotic Therapy (OM), Pyelonephritis (OM) Additional Instructions: Return immediately for any new or worsening symptoms Followup with your primary care provider, call tomorrow to make a followup appointment Culture is pending, will call if you need any different treatment Avoid use of cocaine Prescriptions: Cefdinir 300 mg PO BID #20 capsule Referrals: [facility] [Provider Group] - Follow up as needed [facility] [Provider Group] - Follow up as needed
[2018-10-19 19:38] LABS: ABSOLUTE BASOPHILS # (AUTO) 0.1 10^3/uL (0.0-0.2); ABSOLUTE LYMPHOCYTES (AUTO) 1.5 10^3/uL (0.5-4.7); ABSOLUTE MONOCYTES (AUTO) 1.4 10^3/uL (0.1-1.4); ABSOLUTE NEUT (AUTO) 6.4 10^3/uL (1.7-8.2); BASOPHILS % (AUTO) 0.6 % (0-2); HEMATOCRIT 36.4 % (36.0-47.0); HEMOGLOBIN 12.2 g/dL (12.0-15.5); LYMPHOCYTES % (AUTO) 16.4 % (13-45); MEAN CORPUSCULAR HEMOGLOBIN 26.4 pg (27.0-33.4); MEAN CORPUSCULAR HGB CONC 33.5 g/dL (32.0-36.0); MEAN CORPUSCULAR VOLUME 79 fl (80-97); MONOCYTES % (AUTO) 14.5 % (3-13); PLATELET COUNT 132 10^3/uL (150-450); RED BLOOD COUNT 4.61 10^6/uL (3.72-5.28); RED CELL DISTRIBUTION WIDTH 19.2 % (11.5-14.0); SEGMENTED NEUTROPHILS % (AUTO) 68.5 % (42-78); TOTAL CELLS COUNTED % (AUTO) 100 %; WHITE BLOOD COUNT 9.3 10^3/uL (4.0-10.5)
[2018-10-19 19:56] LABS: A TYPE INFLUENZA AG NEGATIVE (NEGATIVE); B INFLUENZA AG NEGATIVE (NEGATIVE)
[2018-10-19 19:57] LABS: APPEARANCE,URINE CLOUDY; BILIRUBIN,URINE NEGATIVE (NEGATIVE); GLUCOSE, URINE NEGATIVE (NEGATIVE); KETONES,URINE NEGATIVE (NEGATIVE); LEUKOCYTE ESTERASE,URINE LARGE (NEGATIVE); NITRITE,URINE NEGATIVE (NEGATIVE); PROTEIN,URINE 100 mg/dL (NEGATIVE); URINE SPECIFIC GRAVITY 1.016
[2018-10-19 19:59] LABS: ALANINE AMINOTRANSFERASE 22 U/L (9-52); ALBUMIN 4.2 g/dL (3.5-5.0); ALKALINE PHOSPHATASE 73 U/L (38-126); ANION GAP 12 (5-19); ASPARTATE AMINO TRANSFERASE 31 U/L (14-36); BILIRUBIN,DIRECT 0.3 mg/dL (0.0-0.4); BILIRUBIN,TOTAL 0.6 mg/dL (0.2-1.3); BLOOD UREA NITROGEN 14 mg/dL (7-20); CALCIUM 9.5 mg/dL (8.4-10.2); CARBON DIOXIDE 26 mmol/L (22-30); CHLORIDE 98 mmol/L (98-107); GLUCOSE 96 mg/dL (75-110); LIPASE 71.7 U/L (23-300); POTASSIUM 3.9 mmol/L (3.6-5.0); SODIUM 135.7 mmol/L (137-145); TOTAL PROTEIN 8.4 g/dL (6.3-8.2)
[2018-10-19 20:07] LABS: URINE AMPHETAMINES SCREEN NEGATIVE; URINE BARBITURATES SCREEN NEGATIVE; URINE BENZODIAZEPINES SCREEN NEGATIVE; URINE COCAINE SCREEN UNCONFIRMED POSITIVE; URINE MARIJUANA (THC) SCREEN NEGATIVE; URINE METHADONE SCREEN NEGATIVE; URINE PHENCYCLIDINE SCREEN NEGATIVE
[2018-10-19 20:08] LABS: COLOR,URINE YELLOW
--- NOTE | 2018-10-19 20:15 | RADIOLOGY REPORT (SQ) ---
EXAM DESCRIPTION: XR ABDOMEN SUPINE AND ERECT WITH CHEST (ABD ACUTE SERIES) COMPLETED DATE/TME: 10/19/2018 18:38 CLINICAL HISTORY: 32 years, Female, Abdominal pain. x4 days ago. Right flank pain. COMPARISON: Chest x-ray 02/12/2013 NUMBER OF VIEWS: Four TECHNIQUE: One PA view of the chest, one upright and two supine views of the abdomen. LIMITATIONS: None. FINDINGS: Cardiomediastinal silhouette is within normal limits. No lung consolidate. No pleural effusion. No pneumothorax. Nonobstructive bowel gas pattern. No free intraperitoneal air. No unexpected intra-abdominal radiodense focus. Osseous structures are without acute finding. IMPRESSION: No acute chest finding. Nonobstructive bowel gas pattern. copyright 2010 [employer]- All Rights Reserved
[2018-10-19] MEDS ORDERED: CEFTRIAXONE 1 GM/D5W RTU 1 GM/50 ML RTUPB IV ONE (20:49)
[2018-10-19] MEDS ORDERED: ACETAMINOPHEN 325 MG TABLET PO ONE (20:53)
--- NOTE | 2018-10-19 23:24 | RADIOLOGY REPORT (SQ) ---
EXAM DESCRIPTION: US TRANSVAGINAL COMPLETED DATE/TME: 10/19/2018 20:48 CLINICAL HISTORY: 32 years Female, pelvic pain, hx 4 days ago Comparison:08/31/2018 Technique: Transvaginal. LIMITATIONS: None. FINDINGS: 11-cm uterus, 0.9-cm mildly heterogeneous endometrial stripe thickness consistent with recent gestational loss with no evidence of significant retained products of conception, 3.2-cm cervical length, 3-cm right ovary, and 2-cm left ovary appear otherwise unremarkable in size, shape, echotexture, and vascularity. No free fluid. IMPRESSION: No acute findings.
[2018-10-19 23:30] LABS: RBCS (WET MOUNT) 2+ RBCS SEEN; T.VAGINALIS (WET MOUNT) NO TRICHOMONAS SEEN; WBCS (WET MOUNT) FEW WBCS SEEN; YEAST (WET MOUNT) NO YEAST SEEN
[2018-10-19 23:31] LABS: BACTERIA (WET MOUNT) 4+ BACTERIA SEEN; EPITHELIALS (WET MOUNT) 4+ EPITHELIALS SEEN
[2018-10-20 00:13] VITALS: BP 112/85
[2018-10-20 00:52] LABS: CHLAM PCR NOT DETECTED (NOT DETECT); GON PCR NOT DETECTED (NOT DETECT)
== END 2018-10-20 00:13 | disposition home or self-care (01) ==
LOC: ER 18:01
DX: N12 Tubulo-interstitial nephritis, not specified as acute or chronic (principal); R10.9 Unspecified abdominal pain; M54.5 Low back pain; R50.9 Fever, unspecified; F17.200 Nicotine dependence, unspecified, uncomplicated; F14.10 Cocaine abuse, uncomplicated; N93.9 Abnormal uterine and vaginal bleeding, unspecified; Z98.890 Other specified postprocedural states
CPT/HCPCS: 99284; 96361; 96375; 96365; 36415; 87086; 87210; 84702; 83690; 85025; 81025; 87088; 80053; 81001; 87186; 80307; 87491; 87591; 87804; 74022; 76830; 93976; J1885; J2405; J7030; J0696

== ENCOUNTER 2019-05-30 14:03 | Emergency (ER) | payer MEDICAID ==
--- NOTE | 2019-05-30 15:58 | ER Document Report ---
ED Medical Screen (RME) - General Chief Complaint: Abdominal Pain Stated Complaint: VAGINAL BLEEDING Time Seen by Provider: 05/30/19 15:34 Notes: Patient is a 33-year-old female who presents the emergency department with a chief complaint of vaginal bleeding. She states her last menstrual cycle was May 01. Patient states that she is sexually active and started bleeding this morning. She took multiple tests last week and some more positive and some were negative. She has been having abdominal pain that she rates a 5 out of 5. She took some ibuprofen last night. Exam: Mildly tender mid lower abdomen. I have greeted and performed a rapid initial assessment of this patient. A comprehensive ED assessment and evaluation of the patient, analysis of test results and completion of medical decision making process will be conducted by an additional ED providers. TRAVEL OUTSIDE OF THE [place] IN LAST 30 DAYS: No - Related Data Allergies/Adverse Reactions: No Known Allergies Allergy (Verified 05/30/19 15:34) Past Medical History - Social History Chew tobacco use (# tins/day): No Frequency of alcohol use: None Drug Abuse: None Renal/ Medical History: Denies: Hx Peritoneal Dialysis Psychiatric Medical History: Reports: Hx Bipolar Disorder - Immunizations Immunizations up to date: Yes Hx Diphtheria, Pertussis, Tetanus Vaccination: Yes - 06/18/2018 Physical Exam - Vital signs Vitals: Temp Pulse BP Pulse Ox 98.6 F 60 101/61 100 05/30/19 15:11 05/30/19 15:11 05/30/19 15:11 05/30/19 15:11 Course - Vital Signs Vital signs: Temp Pulse Resp BP Pulse Ox 98.6 F 60 101/61 100 05/30/19 15:11 05/30/19 15:11 05/30/19 15:11 05/30/19 15:11
[2019-05-30 16:10] LABS: ABSOLUTE BASOPHILS # (AUTO) 0.1 10^3/uL (0.0-0.2); ABSOLUTE EOSINOPHILS # (AUTO) 0.1 10^3/uL (0.0-0.6); ABSOLUTE LYMPHOCYTES (AUTO) 2.4 10^3/uL (0.5-4.7); ABSOLUTE MONOCYTES (AUTO) 0.4 10^3/uL (0.1-1.4); ABSOLUTE NEUT (AUTO) 2.2 10^3/uL (1.7-8.2); BASOPHILS % (AUTO) 1.1 % (0-2); EOSINOPHILS % (AUTO) 1.3 % (0-6); HEMATOCRIT 34.3 % (36.0-47.0); HEMOGLOBIN 10.9 g/dL (12.0-15.5); LYMPHOCYTES % (AUTO) 46.9 % (13-45); MEAN CORPUSCULAR HEMOGLOBIN 24.8 pg (27.0-33.4); MEAN CORPUSCULAR HGB CONC 31.8 g/dL (32.0-36.0); MEAN CORPUSCULAR VOLUME 78 fl (80-97); MONOCYTES % (AUTO) 7.4 % (3-13); PLATELET COUNT 150 10^3/uL (150-450); RED CELL DISTRIBUTION WIDTH 19.3 % (11.5-14.0); SEGMENTED NEUTROPHILS % (AUTO) 43.3 % (42-78); TOTAL CELLS COUNTED % (AUTO) 100 %
[2019-05-30 16:26] LABS: APPEARANCE,URINE SLIGHTLY-CLOUDY; BILIRUBIN,URINE NEGATIVE (NEGATIVE); COLOR,URINE YELLOW; GLUCOSE, URINE NEGATIVE (NEGATIVE); KETONES,URINE NEGATIVE (NEGATIVE); LEUKOCYTE ESTERASE,URINE NEGATIVE (NEGATIVE); NITRITE,URINE NEGATIVE (NEGATIVE); PROTEIN,URINE 30 mg/dL (NEGATIVE); URINE SPECIFIC GRAVITY 1.031
[2019-05-30 16:27] LABS: ANION GAP 8 (5-19); BLOOD UREA NITROGEN 12 mg/dL (7-20); CALCIUM 9.6 mg/dL (8.4-10.2); CARBON DIOXIDE 28 mmol/L (22-30); CHLORIDE 104 mmol/L (98-107); GLUCOSE 105 mg/dL (75-110); POTASSIUM 3.5 mmol/L (3.6-5.0)
--- NOTE | 2019-05-30 17:47 | RADIOLOGY REPORT (SQ) ---
EXAM DESCRIPTION: U/S NON OB PEL TV W/DOPPLER COMPLETED DATE/TIME: 05/30/2019 5:36 pm REASON FOR STUDY: vaginal bleeding LMP 05/01/2019 COMPARISON: 10/19/2018 TECHNIQUE: Dynamic and static grayscale images acquired of the pelvis via transvaginal approach and recorded on PACS. Additional selected color Doppler and spectral images recorded. LIMITATIONS: None. FINDINGS: UTERUS: Contour normal. No mass. ENDOMETRIAL STRIPE: No focal or generalized thickening. No masses. CERVIX: 2.2 cm. There is no nabothian cyst. RIGHT OVARY AND DOPPLER: Normal size. No worrisome masses. Normal arterial vascular flow without evid ence for torsion. LEFT OVARY AND DOPPLER: Normal size. No worrisome masses. Normal arterial vascular flow without evide nce for torsion. FREE FLUID: None noted. OTHER: Small amount of free fluid in the posterior cul-de-sac. MEASUREMENTS: UTERUS: 9.2 x 5.3 x 4.4 cm. ENDOMETRIAL STRIPE: 7 mm. RIGHT OVARY: 1.8 x 2.3 x 2.2 cm. LEFT OVARY: 3.4 x 2.4 x 1.2 cm. IMPRESSION: NORMAL TRANSVAGINAL PELVIC ULTRASOUND. TECHNICAL DOCUMENTATION: JOB ID: [id number] [employer]- All Rights Reserved Rev-01/07 Reading location - IP/workstation name: [email or web address]
--- NOTE | 2019-05-30 18:14 | ER Document Report ---
ED GI/ - General Chief Complaint: Abdominal Pain Stated Complaint: VAGINAL BLEEDING Time Seen by Provider: 05/30/19 15:34 Mode of Arrival: Ambulatory Information source: Patient Notes: 33-year-old female presented to ED for complaint of vaginal bleeding and pelvic pain. She states her last menstrual period was 05/07/2019 and then she started bleeding again this morning. She states she has been sexually active. She states she is taken multiple tests some are negative is somewhat positive. Patient is alert oriented respirations regular nonlabored speaking in full sentences TRAVEL OUTSIDE OF THE [place] IN LAST 30 DAYS: No - HPI Patient complains to provider of: Pelvic pain, Vaginal bleeding Onset: This morning Timing/Duration: Intermittent Quality of pain: Cramping Severity at maximum: Severe Severity in ED: Moderate Pain Level: 3 Location: LLQ, Pelvis Vaginal bleeding (Compared to normal period): [employer] LMP: 05/07/2019 and again today Associated symptoms: Other - Vaginal bleeding pelvic pain Exacerbated by: Denies Relieved by: Denies Similar symptoms previously: No Recently seen / treated by doctor: No - Related Data Allergies/Adverse Reactions: No Known Allergies Allergy (Verified 05/30/19 15:34) Past Medical History - General Information source: Patient - Social History Smoking Status: Current Every Day Smoker Cigarette use (# per day): Yes Chew tobacco use (# tins/day): No Smoking Education Provided: Yes - 4 minutes Frequency of alcohol use: None Drug Abuse: None Lives with: Family Family History: Reviewed & Not Pertinent Patient has suicidal ideation: No Patient has homicidal ideation: No - Past Medical History Cardiac Medical History: Reports: None Pulmonary Medical History: Reports: None EENT Medical History: Reports: None Neurological Medical History: Reports: None Endocrine Medical History: Reports: None Renal/ Medical History: Reports: None Malignancy Medical History: Reports: None GI Medical History: Reports: None Musculoskeletal Medical History: Reports None Skin Medical History: Reports None Psychiatric Medical History: Reports: Hx Bipolar Disorder Traumatic Medical History: Reports: None Infectious Medical History: Reports: None Surgical Hx: Negative Past Surgical History: Reports: None - Immunizations Immunizations up to date: Yes Hx Diphtheria, Pertussis, Tetanus Vaccination: Yes - 06/18/2018 Hx Pneumococcal Vaccination: 08/23/00 Review of Systems - Review of Systems Constitutional: No symptoms reported EENT: No symptoms reported Cardiovascular: No symptoms reported Respiratory: No symptoms reported Gastrointestinal: No symptoms reported Genitourinary: No symptoms reported Female Genitourinary: Heavy/abnormal periods, Vaginal bleeding Musculoskeletal: No symptoms reported Skin: No symptoms reported Hematologic/Lymphatic: No symptoms reported Neurological/Psychological: No symptoms reported -: Yes All other systems reviewed and negative Physical Exam - Vital signs Vitals: Temp Pulse BP Pulse Ox 98.6 F 60 101/61 100 05/30/19 15:11 05/30/19 15:11 05/30/19 15:11 05/30/19 15:11 Interpretation: Normal - General General appearance: Appears well, Alert - HEENT Head: Normocephalic, Atraumatic Eyes: Normal Pupils: PERRL - Respiratory Respiratory status: No respiratory distress Chest status: Nontender Breath sounds: Normal Chest palpation: Normal - Cardiovascular Rhythm: Regular Heart sounds: Normal auscultation Murmur: No - Abdominal Inspection: Normal Distension: No distension Bowel sounds: Normal Tenderness: Nontender Organomegaly: No organomegaly - Back Back: Normal, Nontender - Extremities General upper extremity: Normal inspection, Nontender, Normal color, Normal ROM, Normal temperature General lower extremity: Normal inspection, Nontender, Normal color, Normal ROM, Normal temperature, Normal weight bearing. No: Kelli's sign - Neurological Neuro grossly intact: Yes Cognition: Normal Orientation: AAOx4 [place] Coma Scale Eye Opening: Spontaneous Yvette Coma Scale Verbal: Oriented [place] Coma Scale Motor: Obeys Commands [place] Coma Scale Total: 15 Speech: Normal Motor strength normal: LUE, RUE, LLE, RLE Sensory: Normal - Psychological Associated symptoms: Normal affect, Normal mood - Skin Skin Temperature: Warm Skin Moisture: Dry Skin Color: Normal Course - Re-evaluation Re-evalutation: 05/31/19 01:43 Discussed labs and ultrasound with patient before discharge - Vital Signs Vital signs: Temp Pulse Resp BP Pulse Ox 98.2 F 68 14 102/77 100 05/30/19 18:18 05/30/19 18:18 05/30/19 18:18 05/30/19 18:18 05/30/19 18:18 - Laboratory Result Diagrams: 05/30/19 15:55 05/30/19 15:55 Laboratory results interpreted by me: 05/30/19 05/30/19 05/30/19 15:55 15:55 15:55 Hgb 10.9 L Hct 34.3 L MCV 78 L MCH 24.8 L MCHC 31.8 L RDW 19.3 H Lymph % (Auto) 46.9 H Potassium 3.5 L Urine Protein 30 H Urine Blood LARGE H Urine Urobilinogen 4.0 H - Diagnostic Test Radiology reviewed: Image reviewed, Reports reviewed Discharge - Discharge Clinical Impression: Pelvic pain, Vaginal bleeding Condition: Stable Disposition: HOME, SELF-CARE Instructions: Family Physicians / Practices Additional Instructions: PELVIC PAIN: There are many causes of pain in the pelvic area. The cause could be the tubes, ovaries, uterus, intestines, appendix, pelvic muscles and connective tissue, or the urinary tract. The cause of your pelvic pain is not clear. However, it seems safe to treat you outside the hospital. If the pain sounds like a temporary problem, we sometimes wait to see if it goes away. Other patients may need additional tests, such as pelvic ultrasound or cultures. Conditions may change. Call us or come back for reexamination if any problems occur, such as: (1) Pain that becomes more severe, steady, or becomes concentrated in one specific area. Also, pain that is more severe with movement or coughing. (2) Vomiting that persists or becomes more frequent. (3) Blood in the vomitus, urine, or bowel movements. Blood in the stool may have a tarry or black appearance. (4) Shaking chills or fever greater than 100 degrees. (5) The abdomen becomes more distended or swollen. (6) Bowel movements cease. (7) Heavy vaginal bleeding. VAGINAL BLEEDING: You are having an episode of abnormal bleeding. Causes of abnormal vaginal bleeding can include miscarriage or tubal , tumors such as cancer or benign fibroids, medication effects, or hormone imbalance. Testing can eliminate unsuspected , tumors, or infection as a cause. "Dysfunctional uterine bleeding" is due to hormone imbalance, and is especially common at times when the normal cycle is disturbed -- whether by recent , use of control pills or hormones, or impending menopause. If the bleeding is innocent, most commonly a short course of hormones is given to restore the uterus to normal. Sometimes, the normal menstrual cycle corrects itself naturally. Sometimes, brief hormone therapy, or even a D&C is required. Your physician will advise you. Treatment for anemia may be required if bleeding is severe. You should rest and avoid intercourse until the bleeding is controlled. Call the doctor or return for re-examination if you feel faint, have increasing pain, or have a major increase in the amount of bleeding. NORMAL EXAM AND WORKUP: At this time, except for vaginal bleeding, your examination and workup show no significant abnormality. No significant abnormal physical findings were noted. All laboratory, EKG, and imaging (x-ray, CT scans, ultrasound) studies that were ordered show no significant abnormality. Although your examination and all studies that were ordered showed no significant abnormal finding, there are no examinations and no studies that are 100% accurate. There is always the possibility that some abnormality could exist and not be detected with physical examination or within the limits and capabilities of laboratory and other studies. You should return or follow up as you were instructed on your visit today for further evaluation if your symptoms do not resolve. I have discussed your labs and ultrasound with you and given you a written report of your labs and ultrasound please follow-up with your primary doctor. FOLLOW-UP CARE: If you have been referred to a physician for follow-up care, call the physicians office for an appointment as you were instructed or within the next two days. If you experience worsening or a significant change in your symptoms, notify the physician immediately or return to the Emergency Department at any time for re-evaluation. Prescriptions: Ondansetron [Zofran Odt 4 mg Tablet] 1 tab PO Q6H #15 tab.rapdis Forms: Smoking Cessation Education, Return to Work
[2019-05-30 18:19] VITALS: BP 102/77
== END 2019-05-30 18:22 | disposition home or self-care (01) ==
LOC: ER 14:03
DX: R10.2 Pelvic and perineal pain (principal); N93.9 Abnormal uterine and vaginal bleeding, unspecified; F17.210 Nicotine dependence, cigarettes, uncomplicated; Z71.6 Tobacco abuse counseling
CPT/HCPCS: 36415; 76830; 80048; 81001; 84702; 84703; 85025; 93976; 99284

== ENCOUNTER 2019-07-09 17:24 | Emergency (ER) | payer MEDICAID ==
--- NOTE | 2019-07-09 17:53 | ER Document Report ---
ED Medical Screen (RME) - General Chief Complaint: OB Problem (>20wk) Stated Complaint: TEST Time Seen by Provider: 07/09/19 17:38 Notes: Patient is a G7, P7 who presents emergency department with a chief complaint of . Patient reports she was here a month ago for lower abdominal pain and vaginal bleeding. She states she was told she was not . Patient reports she was seen by a provider in [place] who told her she was 14 weeks based off her last menstrual cycle. Patient reports last menstrual cycle was April. Patient states she did receive an ultrasound and blood work at an clinic. Patient states she came here to figure out what is going on she was told she was not last time she was here in early May. Patient reports she did have vaginal spotting on July 01 and . Patient reports generalized abdominal pain and vomiting x3 over the past 24 hours. TRAVEL OUTSIDE OF THE [place] IN LAST 30 DAYS: No - Related Data Allergies/Adverse Reactions: No Known Allergies Allergy (Verified 07/09/19 17:30) Past Medical History - Social History Chew tobacco use (# tins/day): No Drug Abuse: None Renal/ Medical History: Denies: Hx Peritoneal Dialysis Psychiatric Medical History: Reports: Hx Bipolar Disorder - Immunizations Immunizations up to date: Yes Hx Diphtheria, Pertussis, Tetanus Vaccination: Yes - 06/18/2018 Course - Re-evaluation Re-evalutation: 07/09/19 17:53 I have greeted and performed a rapid initial assessment of this patient. A comprehensive ED assessment and evaluation of the patient, analysis of test results and completion of the medical decision making process will be conducted by additional ED providers.
[2019-07-09 18:23] LABS: ABSOLUTE BASOPHILS # (AUTO) 0.1 10^3/uL (0.0-0.2); ABSOLUTE LYMPHOCYTES (AUTO) 2.5 10^3/uL (0.5-4.7); ABSOLUTE MONOCYTES (AUTO) 0.8 10^3/uL (0.1-1.4); ABSOLUTE NEUT (AUTO) 3.2 10^3/uL (1.7-8.2); BASOPHILS % (AUTO) 0.8 % (0-2); EOSINOPHILS % (AUTO) 0.3 % (0-6); HEMATOCRIT 32.9 % (36.0-47.0); HEMOGLOBIN 10.8 g/dL (12.0-15.5); LYMPHOCYTES % (AUTO) 37.3 % (13-45); MEAN CORPUSCULAR HEMOGLOBIN 24.9 pg (27.0-33.4); MEAN CORPUSCULAR HGB CONC 32.8 g/dL (32.0-36.0); MEAN CORPUSCULAR VOLUME 76 fl (80-97); MONOCYTES % (AUTO) 12.9 % (3-13); PLATELET COUNT 123 10^3/uL (150-450); RED BLOOD COUNT 4.34 10^6/uL (3.72-5.28); RED CELL DISTRIBUTION WIDTH 19.5 % (11.5-14.0); SEGMENTED NEUTROPHILS % (AUTO) 48.7 % (42-78); TOTAL CELLS COUNTED % (AUTO) 100 %; WHITE BLOOD COUNT 6.6 10^3/uL (4.0-10.5)
[2019-07-09 18:26] LABS: APPEARANCE,URINE SLIGHTLY-CLOUDY; BILIRUBIN,URINE NEGATIVE (NEGATIVE); COLOR,URINE YELLOW; GLUCOSE, URINE NEGATIVE (NEGATIVE); KETONES,URINE TRACE mg/dL (NEGATIVE); LEUKOCYTE ESTERASE,URINE NEGATIVE (NEGATIVE); NITRITE,URINE NEGATIVE (NEGATIVE); PROTEIN,URINE 30 mg/dL (NEGATIVE); URINE SPECIFIC GRAVITY 1.029
[2019-07-09 18:43] LABS: ALBUMIN 4.2 g/dL (3.5-5.0); ALKALINE PHOSPHATASE 55 U/L (38-126); ANION GAP 7 (5-19); ASPARTATE AMINO TRANSFERASE 24 U/L (14-36); BILIRUBIN,TOTAL 0.4 mg/dL (0.2-1.3); BLOOD UREA NITROGEN 10 mg/dL (7-20); CALCIUM 9.7 mg/dL (8.4-10.2); CARBON DIOXIDE 26 mmol/L (22-30); CHLORIDE 103 mmol/L (98-107); GLUCOSE 96 mg/dL (75-110); TOTAL PROTEIN 7.9 g/dL (6.3-8.2)
--- NOTE | 2019-07-09 21:11 | ER Document Report ---
ED General - General Chief Complaint: OB Problem (>20wk) Stated Complaint: TEST Time Seen by Provider: 07/09/19 17:38 TRAVEL OUTSIDE OF THE [place] IN LAST 30 DAYS: No - HPI Notes: Patient is a 33-year-old female who presents emergency department for evaluation. She states she is upset as she believes she received false information during her last visit. The patient states that her last menstrual period was in April. She states that that point she took multiple tests at home, states they were all positive. She was seen here in the emergency department, had blood test and ultrasound. She states she was told at that point she was not . The patient proceeded to seek out care for an . She planned to take a medical approach to this. She was told at that time, according to the clinic, that she was 14 weeks , and the surgical procedure would be necessary. The patient presents here today very upset. She states that this is going to cost her a lot of money, and wants to know what is really happening in regards to her . She denies any vaginal bleeding at this time, states she had some spotting recently, but this was in the last few weeks. She denies any current abdominal pain. - Related Data Allergies/Adverse Reactions: No Known Allergies Allergy (Verified 07/09/19 17:30) Past Medical History - General Information source: Patient - Social History Smoking Status: Never Smoker Chew tobacco use (# tins/day): No Drug Abuse: None Family History: Reviewed & Not Pertinent Patient has suicidal ideation: No Patient has homicidal ideation: No Renal/ Medical History: Denies: Hx Peritoneal Dialysis Psychiatric Medical History: Reports: Hx Bipolar Disorder - Immunizations Immunizations up to date: Yes Hx Diphtheria, Pertussis, Tetanus Vaccination: Yes - 06/18/2018 Hx Pneumococcal Vaccination: 08/23/00 Review of Systems - Review of Systems Constitutional: No symptoms reported EENT: No symptoms reported Cardiovascular: No symptoms reported Respiratory: No symptoms reported Gastrointestinal: No symptoms reported Genitourinary: No symptoms reported Female Genitourinary: See HPI Musculoskeletal: No symptoms reported Skin: No symptoms reported Neurological/Psychological: No symptoms reported Physical Exam - Vital signs Vitals: Temp Pulse Resp BP Pulse Ox 98.6 F 74 18 116/51 L 100 07/09/19 17:28 07/09/19 17:28 07/09/19 17:28 07/09/19 17:28 07/09/19 17:28 - Notes Notes: This is a 33-year-old female who appears her stated age, no acute distress. She is very aggressive in her tone and body language, but eventually calms and is cooperative with examiner. Vital signs reviewed, please refer to chart. Head is normocephalic, atraumatic. Pupils equal round, reactive to light. Neck is supple without meningismus. Heart is regular rate and rhythm. Lungs are clear to auscultation bilaterally. Abdomen is soft, nontender, normoactive bowel sounds throughout. Extremities without cyanosis, clubbing. Posterior calves are nontender. Peripheral pulses are equal. Skin is warm and dry. Patient is awake, alert, neurological exam is nonfocal. Course - Re-evaluation Re-evalutation: 07/09/19 21:11 Patient presents to the emergency department for evaluation. She claims to have been told recently that she was 14 weeks . I did review this patient's visit history. On May 31 she had an undetectable blood beta-hCG. She had a transvaginal ultrasound which was found to be negative as well. Blood work was obtained here today. She does not fact have a positive beta today, just over 57,000. Ultrasound was ordered, is pending at this time. Patient remained stable, we will continue to monitor. 07/09/19 21:57 Patient's ultrasound reveals an intrauterine , approximately 6 weeks and 3 days gestational age per measurements. Findings were explained to the patient. I do not have a clear reason as to the discrepancy according to the patient, but will have her follow-up. At this point I suspect she still wishes to terminate this . It is likely that this can be done medically at this point. We will refer her back to clinic for further care. - Vital Signs Vital signs: Temp Pulse Resp BP Pulse Ox 97.2 F 67 15 116/66 100 07/09/19 22:17 07/09/19 22:17 07/09/19 22:17 07/09/19 22:17 07/09/19 22:17 - Laboratory Result Diagrams: 07/09/19 18:04 07/09/19 18:04 Laboratory results interpreted by me: 07/09/19 07/09/19 07/09/19 18:04 18:04 18:04 Hgb 10.8 L Hct 32.9 L MCV 76 L MCH 24.9 L RDW 19.5 H Plt Count 123 L Sodium 136.4 L Serum HCG, Qual POSITIVE H Beta HCG, Quant 31366.00 H Urine Protein Urine Ketones Urine Urobilinogen 07/09/19 18:04 Hgb Hct MCV MCH RDW Plt Count Sodium Serum HCG, Qual Beta HCG, Quant Urine Protein 30 H Urine Ketones TRACE H Urine Urobilinogen 2.0 H - Diagnostic Test Radiology reviewed: Reports reviewed Discharge - Discharge Clinical Impression: First trimester Condition: Stable Disposition: HOME, SELF-CARE Instructions: ([facility]) Additional Instructions: Your ultrasound today showed a consistent with 6 weeks and 3 days. Your quantitative beta was just over 57,000. There were small subchorionic hematomas noted, which can cause a small amount of bleeding. Return to the ED with worsening or new concerning symptoms of any sort.
--- NOTE | 2019-07-09 21:52 | RADIOLOGY REPORT (SQ) ---
EXAM DESCRIPTION: [facility]: US TRANSVAGINAL CLINICAL HISTORY: 33 years Female; , eval for gestational age. TECHNIQUE: Endovaginal pelvic ultrasound was performed. COMPARISON: Ultrasound 05/30/2019 FINDINGS: Uterus: 9.5 x 5.4 x 6.8 cm. Single intrauterine gestational sac is identified. Single pole, CRL 0.65 cm, EGA 6 weeks 3 days heart rate 104 BPM An adjacent subchorionic hemorrhage measures 1 x 0.3 x 1.1 cm. Distally there is another hematoma 1.4 x 0.9 x 2.3 cm. Yolk sac is present. Cervix 2.6 cm, closed Right ovary: 2.1 x 1.6 x 1.1 cm. Normal vascular flow on Doppler. Left ovary: 2.8 x 1.9 x 2.7 cm. Normal vascular flow on Doppler. No free fluid. No adnexal masses. IMPRESSION: 1. Single viable IUP, EGA 6 weeks 3 days, KELVIN 02/29/2020 2. 2 subchorionic hematomas
[2019-07-09 22:18] VITALS: BP 116/66
== END 2019-07-09 22:17 | disposition home or self-care (01) ==
LOC: ER 17:24
DX: Z32.01 Encounter for pregnancy test, result positive (principal)
CPT/HCPCS: 36415; 76817; 80053; 81001; 84702; 84703; 85025; 99284